=== PATIENT | male | born 1960 | race Caucasian/White ===

== ENCOUNTER 2020-08-10 16:00 | Inpatient (IN) | payer MEDICAID, OTHER ==
[~2020-08-10] VITALS: Ht 185.4 cm; Wt 81.2 kg
[2020-08-10 16:00] VITALS: BP 108/69
[~2020-08-10 16:00] MED LIST: ACET-2247 PO; FERR-89 PO; FOLI-130 PO; GABA-1216 PO; MULT-29 PO; OLAN5TAB52 PO; OMEP20 PO
[2020-08-10] MEDS ORDERED: ACETAMINOPHEN 325 MG TABLET PO PRN (17:45)
[2020-08-11 06:58] LABS: BASOPHILS % (AUTO) 0.8 % (0.0-2.0); EOSINOPHILS % (AUTO) 2.9 % (1.0-6.0); HEMATOCRIT 42.1 % (41-53); HEMOGLOBIN 14.5 g/dL (13.5-17.5); LYMPHOCYTES # (AUTO) 1.9 K/uL (1.0-4.8); LYMPHOCYTES % (AUTO) 21.7 % (22.0-44.0); MEAN CORPUSCULAR HEMOGLOBIN 35.6 pg (26.0-34.0); MEAN CORPUSCULAR HGB CONC 34.4 G/dL (31.0-37.0); MEAN CORPUSCULAR VOLUME 104 fL (80-100); MONOCYTES # (AUTO) 0.9 K/uL (0.1-1.0); MONOCYTES % (AUTO) 10.2 % (2.0-9.0); NEUTROPHILS # (AUTO) 5.7 K/uL (1.8-7.7); NEUTROPHILS % (AUTO) 64.4 % (40.0-70.0); PLATELET COUNT (AUTO) 283 K/uL (150-450); RED BLOOD CELL COUNT(AUTO) 4.07 MIL/uL (4.50-5.90); RED CELL DISTRIBUTION WIDTH 13.9 % (11.5-14.5)
[2020-08-11 07:14] LABS: ALANINE AMINOTRANSFERASE 47 U/L (12-78); ALBUMIN 3.5 g/dL (3.4-5.0); ALKALINE PHOSPHATASE 120 U/L (46-116); ANION GAP 40 mmol/L (8-16); ASPARTATE AMINOTRANSFERASE 23 U/L (15-37); BILIRUBIN,TOTAL 0.8 mg/dL (0.1-1.0); CALCIUM, TOTAL 8.5 mg/dL (8.8-10.5); CARBON DIOXIDE 18 mmol/L (22-29); CHLORIDE 96 mmol/L (98-107); CREATININE 0.93 mg/dL (0.60-1.30); GLOMERULAR FILTR. RATE CALC > 60 mL/min (>60); GLUCOSE,RANDOM 97 mg/dL (70-110); POTASSIUM 3.9 mmol/L (3.5-5.1); SODIUM SERUM 154 mmol/L (136-145); TOTAL PROTEIN, SERUM 6.8 g/dL (6.4-8.2); UREA NITROGEN, BLOOD 26 mg/dL (7-18)
[2020-08-11] MEDS ORDERED: FERROUS SULFATE 325 MG EC TABLET PO SCH (07:30)
[2020-08-11 08:00] VITALS: BP 141/96
[2020-08-11] MEDS ORDERED: PETROLATUM,WHITE 28 GM JELLY TP PRN (08:00)
[2020-08-11] MEDS ORDERED: CloNIDine HCL 0.1 MG TABLET PO PRN (08:00)
[2020-08-11] MEDS ORDERED: IBUPROFEN 400 MG TABLET PO PRN (08:00)
[2020-08-11] MEDS ORDERED: MAG HYDROX/AL HYDROX/SIMETH ES 30 ML SUSPENSION UDCUP PO PRN (08:00)
[2020-08-11] MEDS ORDERED: ONDANSETRON HCL 4 MG TABLET PO PRN (08:00)
[2020-08-11] MEDS ORDERED: LOPERAMIDE HCL 2 MG CAPSULE PO PRN (08:00)
[2020-08-11] MEDS ORDERED: DOCUSATE SODIUM 100 MG CAPSULE PO PRN (08:00)
[2020-08-11] MEDS: FOLIC ACID 1 MG TABLET PO SCH ×2 (08:04→16:13)
[2020-08-11] MEDS: OLANZapine 5 MG TABLET PO SCH ×2 (08:04→16:13)
[2020-08-11] MEDS: GABAPENTIN 100 MG CAPSULE PO SCH ×2 (08:04→16:13)
[2020-08-11] MEDS: OMEPRAZOLE 20 MG CAPSULE PO SCH (08:05)
[2020-08-11] MEDS ORDERED: FOLIC ACID 1 MG TABLET PO SCH (09:00)
[2020-08-11] MEDS ORDERED: PANTOPRAZOLE SODIUM 40 MG DR TABLET PO SCH (09:00)
[2020-08-11] MEDS ORDERED: MULTIVITAMINS WITH MINERALS, THERAPEUTIC TABLET PO SCH (09:00)
[2020-08-11] MEDS: FERROUS SULFATE 325 MG EC TABLET PO SCH (16:14)
[2020-08-11 16:20] VITALS: BP 132/72
[2020-08-12] MEDS: FERROUS SULFATE 325 MG EC TABLET PO SCH ×2 (06:51→16:49)
[2020-08-12 08:00] VITALS: BP 146/86
[2020-08-12 08:04] LABS: APPEARANCE,URINE CLEAR (CLEAR); BILIRUBIN,URINE NEGATIVE (NEGATIVE); GLUCOSE, URINE (UA) NEGATIVE (NEGATIVE); KETONES,URINE NEGATIVE (NEGATIVE); LEUKOCYTE ESTERASE ,URINE NEGATIVE (NEGATIVE); NITRATE,URINE NEGATIVE (NEGATIVE); OCCULT BLOOD,URINE NEGATIVE (NEGATIVE); PH,URINE 5.5 (5.0-8.0); PROTEIN,URINE NEGATIVE (NEGATIVE); UROBILINOGEN,URINE 0.2 mg/dL (<=1.0)
[2020-08-12] MEDS: GABAPENTIN 100 MG CAPSULE PO SCH ×2 (08:07→16:48)
[2020-08-12] MEDS: OLANZapine 5 MG TABLET PO SCH ×2 (08:07→17:16)
[2020-08-12] MEDS: OMEPRAZOLE 20 MG CAPSULE PO SCH (08:07)
[2020-08-12] MEDS: MULTIVITAMINS WITH MINERALS, THERAPEUTIC TABLET PO SCH (08:07)
[2020-08-12] MEDS: FOLIC ACID 1 MG TABLET PO SCH ×2 (08:07→16:48)
[2020-08-12 09:14] LABS: BACTERIA,URINE None Seen /HPF (None Seen); RBC,URINE None Seen /HPF (0-2); WBC,URINE None Seen /HPF (0-5)
[2020-08-13] MEDS: FERROUS SULFATE 325 MG EC TABLET PO SCH ×2 (06:57→17:41)
[2020-08-13 08:00] VITALS: BP 107/79
[2020-08-13] MEDS: GABAPENTIN 100 MG CAPSULE PO SCH ×2 (08:04→17:40)
[2020-08-13] MEDS: OLANZapine 5 MG TABLET PO SCH ×2 (08:04→17:40)
[2020-08-13] MEDS: MULTIVITAMINS WITH MINERALS, THERAPEUTIC TABLET PO SCH (08:04)
[2020-08-13] MEDS: OMEPRAZOLE 20 MG CAPSULE PO SCH (08:05)
[2020-08-13] MEDS: FOLIC ACID 1 MG TABLET PO SCH ×2 (08:05→17:40)
[2020-08-13 16:00] VITALS: BP 128/79
[2020-08-14] MEDS: FERROUS SULFATE 325 MG EC TABLET PO SCH ×2 (06:37→16:31)
[2020-08-14] MEDS: GABAPENTIN 100 MG CAPSULE PO SCH ×2 (08:04→16:31)
[2020-08-14] MEDS: OLANZapine 5 MG TABLET PO SCH ×2 (08:04→16:31)
[2020-08-14] MEDS: OMEPRAZOLE 20 MG CAPSULE PO SCH (08:04)
[2020-08-14] MEDS: MULTIVITAMINS WITH MINERALS, THERAPEUTIC TABLET PO SCH (08:04)
[2020-08-14] MEDS: FOLIC ACID 1 MG TABLET PO SCH ×2 (08:04→16:31)
[2020-08-14 16:21] LABS: COVID AG,FIA SOURCE NASOPHARYNGEAL
[2020-08-14] MEDS: HALOPERIDOL 5 MG TABLET PO PRN (17:31)
[2020-08-14 19:00] VITALS: BP 162/73
[2020-08-15] MEDS: FERROUS SULFATE 325 MG EC TABLET PO SCH ×2 (07:11→16:52)
[2020-08-15] MEDS: MULTIVITAMINS WITH MINERALS, THERAPEUTIC TABLET PO SCH (08:12)
[2020-08-15] MEDS: LORazepam 2 MG TABLET PO PRN (08:12)
[2020-08-15] MEDS: HALOPERIDOL 5 MG TABLET PO PRN (08:12)
[2020-08-15] MEDS: FOLIC ACID 1 MG TABLET PO SCH ×2 (08:12→16:51)
[2020-08-15] MEDS: OMEPRAZOLE 20 MG CAPSULE PO SCH (08:12)
[2020-08-15] MEDS: OLANZapine 5 MG TABLET PO SCH ×2 (08:12→16:51)
[2020-08-15] MEDS: GABAPENTIN 100 MG CAPSULE PO SCH ×2 (08:13→16:51)
[2020-08-15 09:13] VITALS: BP 135/68
[2020-08-15 14:32] LABS: ANION GAP 8 mmol/L (8-16); CALCIUM, TOTAL 9.2 mg/dL (8.8-10.5); CARBON DIOXIDE 29 mmol/L (22-29); CHLORIDE 103 mmol/L (98-107); CREATININE 1.01 mg/dL (0.60-1.30); GLOMERULAR FILTR. RATE CALC > 60 mL/min (>60); GLUCOSE,RANDOM 88 mg/dL (70-110); POTASSIUM 4.5 mmol/L (3.5-5.1); SODIUM SERUM 140 mmol/L (136-145); UREA NITROGEN, BLOOD 27 mg/dL (7-18)
[2020-08-15] MEDS: NICOTINE 14 MG/24 HOUR PATCH TD PRN (14:55)
[2020-08-15 16:47] VITALS: BP 121/92
[2020-08-16] MEDS: ZOLPIDEM TARTRATE 10 MG TABLET PO PRN (00:47)
[2020-08-16 00:53] VITALS: BP 127/85
[2020-08-16] MEDS: FERROUS SULFATE 325 MG EC TABLET PO SCH ×2 (06:54→16:29)
[2020-08-16] MEDS: LORazepam 2 MG TABLET PO PRN (07:48)
[2020-08-16] MEDS: HALOPERIDOL 5 MG TABLET PO PRN (07:48)
[2020-08-16 08:00] VITALS: BP 160/87
[2020-08-16] MEDS: FOLIC ACID 1 MG TABLET PO SCH ×2 (08:02→16:29)
[2020-08-16] MEDS: OMEPRAZOLE 20 MG CAPSULE PO SCH (08:02)
[2020-08-16] MEDS: OLANZapine 5 MG TABLET PO SCH ×2 (08:02→16:29)
[2020-08-16] MEDS: MULTIVITAMINS WITH MINERALS, THERAPEUTIC TABLET PO SCH (08:02)
[2020-08-16] MEDS: GABAPENTIN 100 MG CAPSULE PO SCH ×2 (08:03→16:29)
[2020-08-16 16:01] VITALS: BP 130/81
[2020-08-17 03:30] VITALS: BP 108/59
[2020-08-17 05:00] VITALS: BP 147/71
[2020-08-17] MEDS: FERROUS SULFATE 325 MG EC TABLET PO SCH ×2 (07:01→16:33)
[2020-08-17] MEDS: FOLIC ACID 1 MG TABLET PO SCH ×2 (09:00→16:32)
[2020-08-17] MEDS: OLANZapine 5 MG TABLET PO SCH ×2 (09:00→16:33)
[2020-08-17] MEDS: GABAPENTIN 100 MG CAPSULE PO SCH ×2 (09:00→16:32)
[2020-08-17] MEDS: MULTIVITAMINS WITH MINERALS, THERAPEUTIC TABLET PO SCH (09:00)
[2020-08-17] MEDS: OMEPRAZOLE 20 MG CAPSULE PO SCH (09:00)
[2020-08-17] MEDS: LORazepam 2 MG TABLET PO PRN (11:55)
[2020-08-17] MEDS: HALOPERIDOL 5 MG TABLET PO PRN (11:55)
[2020-08-18] MEDS: ZOLPIDEM TARTRATE 10 MG TABLET PO PRN (01:17)
[2020-08-18 02:21] VITALS: BP 112/58
[2020-08-18] MEDS: FERROUS SULFATE 325 MG EC TABLET PO SCH ×2 (06:39→16:51)
[2020-08-18] MEDS: GABAPENTIN 100 MG CAPSULE PO SCH ×2 (08:21→16:51)
[2020-08-18] MEDS: OLANZapine 5 MG TABLET PO SCH ×2 (08:21→16:51)
[2020-08-18] MEDS: MULTIVITAMINS WITH MINERALS, THERAPEUTIC TABLET PO SCH (08:21)
[2020-08-18] MEDS: OMEPRAZOLE 20 MG CAPSULE PO SCH (08:21)
[2020-08-18] MEDS: FOLIC ACID 1 MG TABLET PO SCH ×2 (08:21→16:51)
[2020-08-18] MEDS: NICOTINE 14 MG/24 HOUR PATCH TD PRN (08:22)
[2020-08-18] MEDS: HALOPERIDOL 5 MG TABLET PO PRN ×2 (08:22→22:02)
[2020-08-18 16:02] VITALS: BP 130/80
[2020-08-18] MEDS: RisperiDONE 2 MG TABLET PO SCH (20:31)
[2020-08-19] MEDS: FERROUS SULFATE 325 MG EC TABLET PO SCH ×2 (06:59→17:31)
[2020-08-19] MEDS: FOLIC ACID 1 MG TABLET PO SCH ×2 (09:28→17:31)
[2020-08-19] MEDS: RisperiDONE 2 MG TABLET PO SCH ×2 (09:28→21:10)
[2020-08-19] MEDS: OMEPRAZOLE 20 MG CAPSULE PO SCH (09:28)
[2020-08-19] MEDS: MULTIVITAMINS WITH MINERALS, THERAPEUTIC TABLET PO SCH (09:28)
[2020-08-19] MEDS: OLANZapine 5 MG TABLET PO SCH ×2 (09:28→17:31)
[2020-08-19] MEDS: GABAPENTIN 100 MG CAPSULE PO SCH ×2 (09:28→17:31)
[2020-08-19 16:00] VITALS: BP 149/56
[2020-08-20] MEDS: FERROUS SULFATE 325 MG EC TABLET PO SCH ×2 (06:43→16:27)
[2020-08-20] MEDS: RisperiDONE 2 MG TABLET PO SCH ×2 (10:22→21:12)
[2020-08-20] MEDS: MULTIVITAMINS WITH MINERALS, THERAPEUTIC TABLET PO SCH (10:22)
[2020-08-20] MEDS: OMEPRAZOLE 20 MG CAPSULE PO SCH (10:22)
[2020-08-20] MEDS: GABAPENTIN 100 MG CAPSULE PO SCH ×2 (10:22→16:27)
[2020-08-20] MEDS: OLANZapine 5 MG TABLET PO SCH ×2 (10:22→16:27)
[2020-08-20] MEDS: FOLIC ACID 1 MG TABLET PO SCH ×2 (10:22→16:27)
[2020-08-20 14:43] VITALS: BP 132/99
[2020-08-20 16:00] VITALS: BP 143/90
[2020-08-20] MEDS: HALOPERIDOL 5 MG TABLET PO PRN (16:28)
[2020-08-21] MEDS: FERROUS SULFATE 325 MG EC TABLET PO SCH ×2 (06:41→17:13)
[2020-08-21] MEDS: MULTIVITAMINS WITH MINERALS, THERAPEUTIC TABLET PO SCH (09:52)
[2020-08-21] MEDS: OLANZapine 5 MG TABLET PO SCH ×2 (09:52→17:13)
[2020-08-21] MEDS: OMEPRAZOLE 20 MG CAPSULE PO SCH (09:52)
[2020-08-21] MEDS: FOLIC ACID 1 MG TABLET PO SCH ×2 (09:53→17:13)
[2020-08-21] MEDS: GABAPENTIN 100 MG CAPSULE PO SCH ×2 (09:53→17:13)
[2020-08-21] MEDS: RisperiDONE 2 MG TABLET PO SCH ×2 (09:53→20:49)
[2020-08-21 14:57] LABS: COVID AG,FIA SOURCE NASOPHARYNGEAL
[2020-08-21] MEDS: HALOPERIDOL 5 MG TABLET PO PRN (15:57)
[2020-08-21 16:07] VITALS: BP 110/81
[2020-08-22 05:55] VITALS: BP 139/65
[2020-08-22] MEDS: FERROUS SULFATE 325 MG EC TABLET PO SCH ×2 (06:57→16:32)
[2020-08-22 08:45] VITALS: BP 152/106
[2020-08-22] MEDS: FOLIC ACID 1 MG TABLET PO SCH ×2 (09:08→16:32)
[2020-08-22] MEDS: MULTIVITAMINS WITH MINERALS, THERAPEUTIC TABLET PO SCH (09:08)
[2020-08-22] MEDS: RisperiDONE 2 MG TABLET PO SCH ×2 (09:08→20:46)
[2020-08-22] MEDS: OMEPRAZOLE 20 MG CAPSULE PO SCH (09:08)
[2020-08-22] MEDS: OLANZapine 5 MG TABLET PO SCH ×2 (09:08→16:32)
[2020-08-22] MEDS: GABAPENTIN 100 MG CAPSULE PO SCH ×2 (09:08→16:32)
[2020-08-22 16:16] VITALS: BP 138/88
[2020-08-22] MEDS: HALOPERIDOL 5 MG TABLET PO PRN (16:34)
[2020-08-23 00:17] VITALS: BP 136/63
[2020-08-23] MEDS: ZOLPIDEM TARTRATE 10 MG TABLET PO PRN (01:09)
[2020-08-23] MEDS: FERROUS SULFATE 325 MG EC TABLET PO SCH ×2 (06:42→16:13)
[2020-08-23] MEDS: OLANZapine 5 MG TABLET PO SCH ×2 (08:46→16:13)
[2020-08-23] MEDS: RisperiDONE 2 MG TABLET PO SCH (08:46)
[2020-08-23] MEDS: MULTIVITAMINS WITH MINERALS, THERAPEUTIC TABLET PO SCH (08:46)
[2020-08-23] MEDS: OMEPRAZOLE 20 MG CAPSULE PO SCH (08:47)
[2020-08-23] MEDS: GABAPENTIN 100 MG CAPSULE PO SCH ×2 (08:47→16:13)
[2020-08-23] MEDS: FOLIC ACID 1 MG TABLET PO SCH ×2 (08:47→16:13)
[2020-08-23 16:02] VITALS: BP 130/70
[2020-08-23] MEDS: LORazepam 2 MG TABLET PO PRN (16:18)
[2020-08-23 17:20] VITALS: BP 138/77
[2020-08-23] MEDS: RisperiDONE 3 MG TABLET PO SCH (21:00)
[2020-08-23] MEDS: HALOPERIDOL 5 MG TABLET PO PRN (22:50)
[2020-08-24] MEDS: FERROUS SULFATE 325 MG EC TABLET PO SCH ×2 (06:48→17:42)
[2020-08-24] MEDS: OMEPRAZOLE 20 MG CAPSULE PO SCH (09:47)
[2020-08-24] MEDS: FOLIC ACID 1 MG TABLET PO SCH ×2 (09:47→16:17)
[2020-08-24] MEDS: GABAPENTIN 100 MG CAPSULE PO SCH ×2 (09:47→16:17)
[2020-08-24] MEDS: OLANZapine 5 MG TABLET PO SCH ×2 (09:47→16:17)
[2020-08-24] MEDS: MULTIVITAMINS WITH MINERALS, THERAPEUTIC TABLET PO SCH (09:47)
[2020-08-24] MEDS: RisperiDONE 3 MG TABLET PO SCH ×2 (09:48→20:25)
[2020-08-24 16:00] VITALS: BP 139/76
[2020-08-24] MEDS: HALOPERIDOL 5 MG TABLET PO PRN ×2 (16:17→20:25)
[2020-08-25] MEDS: FERROUS SULFATE 325 MG EC TABLET PO SCH ×2 (06:49→17:30)
[2020-08-25] MEDS: GABAPENTIN 100 MG CAPSULE PO SCH ×2 (10:44→16:26)
[2020-08-25] MEDS: OLANZapine 5 MG TABLET PO SCH ×2 (10:44→16:26)
[2020-08-25] MEDS: OMEPRAZOLE 20 MG CAPSULE PO SCH (10:44)
[2020-08-25] MEDS: RisperiDONE 3 MG TABLET PO SCH ×2 (10:44→20:16)
[2020-08-25] MEDS: FOLIC ACID 1 MG TABLET PO SCH ×2 (10:44→16:26)
[2020-08-25] MEDS: MULTIVITAMINS WITH MINERALS, THERAPEUTIC TABLET PO SCH (10:44)
[2020-08-25] MEDS: HALOPERIDOL 5 MG TABLET PO PRN ×3 (11:51→20:27)
[2020-08-25] MEDS: LORazepam 2 MG TABLET PO PRN (11:51)
[2020-08-25 16:08] VITALS: BP 133/74
[2020-08-26 02:47] VITALS: BP 124/77
[2020-08-26] MEDS: FERROUS SULFATE 325 MG EC TABLET PO SCH ×2 (07:13→17:24)
[2020-08-26] MEDS: OLANZapine 5 MG TABLET PO SCH ×2 (08:57→16:37)
[2020-08-26] MEDS: FOLIC ACID 1 MG TABLET PO SCH ×2 (08:57→16:36)
[2020-08-26] MEDS: MULTIVITAMINS WITH MINERALS, THERAPEUTIC TABLET PO SCH (08:57)
[2020-08-26] MEDS: GABAPENTIN 100 MG CAPSULE PO SCH ×2 (08:57→16:36)
[2020-08-26] MEDS: RisperiDONE 3 MG TABLET PO SCH ×2 (08:57→20:48)
[2020-08-26] MEDS: OMEPRAZOLE 20 MG CAPSULE PO SCH (08:57)
[2020-08-26 09:18] VITALS: BP 137/87
[2020-08-26] MEDS: DIVALPROEX SODIUM 500 MG DR TABLET PO SCH ×2 (09:45→16:36)
[2020-08-26 16:00] VITALS: BP 134/94
[2020-08-26] MEDS: HALOPERIDOL 5 MG TABLET PO PRN ×2 (16:36→20:48)
[2020-08-27] MEDS: FERROUS SULFATE 325 MG EC TABLET PO SCH ×2 (06:49→17:20)
[2020-08-27] MEDS: OLANZapine 5 MG TABLET PO SCH ×2 (10:06→17:20)
[2020-08-27] MEDS: OMEPRAZOLE 20 MG CAPSULE PO SCH (10:06)
[2020-08-27] MEDS: DIVALPROEX SODIUM 500 MG DR TABLET PO SCH ×2 (10:06→17:20)
[2020-08-27] MEDS: FOLIC ACID 1 MG TABLET PO SCH ×2 (10:06→17:20)
[2020-08-27] MEDS: MULTIVITAMINS WITH MINERALS, THERAPEUTIC TABLET PO SCH (10:06)
[2020-08-27] MEDS: RisperiDONE 3 MG TABLET PO SCH ×2 (10:06→21:58)
[2020-08-27] MEDS: GABAPENTIN 100 MG CAPSULE PO SCH ×2 (10:06→17:20)
[2020-08-27 16:09] VITALS: BP 135/81
[2020-08-27] MEDS: LORazepam 2 MG TABLET PO PRN (17:24)
[2020-08-28] MEDS: FERROUS SULFATE 325 MG EC TABLET PO SCH ×2 (07:03→16:02)
[2020-08-28] MEDS: GABAPENTIN 100 MG CAPSULE PO SCH ×2 (08:23→16:02)
[2020-08-28] MEDS: DIVALPROEX SODIUM 500 MG DR TABLET PO SCH ×2 (08:23→16:02)
[2020-08-28] MEDS: RisperiDONE 3 MG TABLET PO SCH ×2 (08:23→20:00)
[2020-08-28] MEDS: FOLIC ACID 1 MG TABLET PO SCH ×2 (08:23→16:02)
[2020-08-28] MEDS: OLANZapine 5 MG TABLET PO SCH ×2 (08:23→16:02)
[2020-08-28] MEDS: MULTIVITAMINS WITH MINERALS, THERAPEUTIC TABLET PO SCH (08:23)
[2020-08-28] MEDS: OMEPRAZOLE 20 MG CAPSULE PO SCH (08:23)
[2020-08-28] MEDS: LORazepam 2 MG TABLET PO PRN ×2 (08:24→20:00)
[2020-08-28 08:56] VITALS: BP 113/56
[2020-08-28 12:21] VITALS: BP 136/54
[2020-08-28 16:00] VITALS: BP 123/76
[2020-08-28] MEDS: HALOPERIDOL 5 MG TABLET PO PRN (16:02)
[2020-08-28 16:47] LABS: EOSINOPHILS % (AUTO) 2.9 % (1.0-6.0); HEMATOCRIT 42.4 % (41-53); HEMOGLOBIN 14.2 g/dL (13.5-17.5); LYMPHOCYTES # (AUTO) 2.8 K/uL (1.0-4.8); LYMPHOCYTES % (AUTO) 34.1 % (22.0-44.0); MEAN CORPUSCULAR HEMOGLOBIN 35.2 pg (26.0-34.0); MEAN CORPUSCULAR HGB CONC 33.5 G/dL (31.0-37.0); MEAN CORPUSCULAR VOLUME 105 fL (80-100); MONOCYTES # (AUTO) 0.8 K/uL (0.1-1.0); MONOCYTES % (AUTO) 10.2 % (2.0-9.0); NEUTROPHILS # (AUTO) 4.2 K/uL (1.8-7.7); NEUTROPHILS % (AUTO) 51.8 % (40.0-70.0); PLATELET COUNT (AUTO) 345 K/uL (150-450); RED BLOOD CELL COUNT(AUTO) 4.03 MIL/uL (4.50-5.90); RED CELL DISTRIBUTION WIDTH 13.5 % (11.5-14.5)
[2020-08-28 17:07] LABS: ALANINE AMINOTRANSFERASE 24 U/L (12-78); ALKALINE PHOSPHATASE 130 U/L (46-116); ANION GAP 10 mmol/L (8-16); ASPARTATE AMINOTRANSFERASE 13 U/L (15-37); BILIRUBIN,TOTAL 0.4 mg/dL (0.1-1.0); CALCIUM, TOTAL 9.4 mg/dL (8.8-10.5); CARBON DIOXIDE 27 mmol/L (22-29); CHLORIDE 105 mmol/L (98-107); CREATININE 1.14 mg/dL (0.60-1.30); GLOMERULAR FILTR. RATE CALC > 60 mL/min (>60); GLUCOSE,RANDOM 108 mg/dL (70-110); POTASSIUM 4.2 mmol/L (3.5-5.1); SODIUM SERUM 142 mmol/L (136-145); TOTAL PROTEIN, SERUM 7.1 g/dL (6.4-8.2); UREA NITROGEN, BLOOD 27 mg/dL (7-18)
[2020-08-29] MEDS: FERROUS SULFATE 325 MG EC TABLET PO SCH ×2 (06:42→16:14)
[2020-08-29 07:29] LABS: APPEARANCE,URINE CLEAR (CLEAR); BILIRUBIN,URINE NEGATIVE (NEGATIVE); GLUCOSE, URINE (UA) NEGATIVE (NEGATIVE); KETONES,URINE NEGATIVE (NEGATIVE); LEUKOCYTE ESTERASE ,URINE NEGATIVE (NEGATIVE); NITRATE,URINE NEGATIVE (NEGATIVE); OCCULT BLOOD,URINE NEGATIVE (NEGATIVE); PROTEIN,URINE NEGATIVE (NEGATIVE); UROBILINOGEN,URINE 0.2 mg/dL (<=1.0)
[2020-08-29] MEDS: OMEPRAZOLE 20 MG CAPSULE PO SCH (09:15)
[2020-08-29] MEDS: GABAPENTIN 100 MG CAPSULE PO SCH ×2 (09:15→16:14)
[2020-08-29] MEDS: FOLIC ACID 1 MG TABLET PO SCH ×2 (09:15→16:14)
[2020-08-29] MEDS: DIVALPROEX SODIUM 500 MG DR TABLET PO SCH ×2 (09:15→16:14)
[2020-08-29] MEDS: RisperiDONE 3 MG TABLET PO SCH ×2 (09:16→20:57)
[2020-08-29] MEDS: OLANZapine 5 MG TABLET PO SCH ×2 (09:16→16:14)
[2020-08-29] MEDS: MULTIVITAMINS WITH MINERALS, THERAPEUTIC TABLET PO SCH (09:16)
[2020-08-29 13:48] LABS: COVID AG,FIA SOURCE NASOPHARYNGEAL
[2020-08-29 16:08] VITALS: BP 145/78
[2020-08-29] MEDS: HALOPERIDOL 5 MG TABLET PO PRN (16:14)
[2020-08-30] MEDS: FERROUS SULFATE 325 MG EC TABLET PO SCH ×2 (06:55→16:30)
[2020-08-30] MEDS: LORazepam 2 MG TABLET PO PRN (08:28)
[2020-08-30] MEDS: HALOPERIDOL 5 MG TABLET PO PRN (08:28)
[2020-08-30] MEDS: NICOTINE 14 MG/24 HOUR PATCH TD PRN (08:28)
[2020-08-30] MEDS: GABAPENTIN 100 MG CAPSULE PO SCH ×2 (08:30→16:30)
[2020-08-30] MEDS: DIVALPROEX SODIUM 500 MG DR TABLET PO SCH ×2 (08:30→16:30)
[2020-08-30] MEDS: OLANZapine 5 MG TABLET PO SCH ×2 (08:30→16:30)
[2020-08-30] MEDS: OMEPRAZOLE 20 MG CAPSULE PO SCH (08:30)
[2020-08-30] MEDS: RisperiDONE 3 MG TABLET PO SCH ×2 (08:30→20:35)
[2020-08-30] MEDS: MULTIVITAMINS WITH MINERALS, THERAPEUTIC TABLET PO SCH (08:30)
[2020-08-30] MEDS: FOLIC ACID 1 MG TABLET PO SCH ×2 (08:30→16:30)
[2020-08-30 16:38] VITALS: BP 101/51
[2020-08-31] MEDS: FERROUS SULFATE 325 MG EC TABLET PO SCH ×2 (06:51→18:00)
[2020-08-31 09:45] VITALS: BP 100/62
[2020-08-31] MEDS: DIVALPROEX SODIUM 500 MG DR TABLET PO SCH ×2 (09:55→16:12)
[2020-08-31] MEDS: MULTIVITAMINS WITH MINERALS, THERAPEUTIC TABLET PO SCH (09:55)
[2020-08-31] MEDS: FOLIC ACID 1 MG TABLET PO SCH ×2 (09:55→16:12)
[2020-08-31] MEDS: RisperiDONE 3 MG TABLET PO SCH ×2 (09:55→21:32)
[2020-08-31] MEDS: OMEPRAZOLE 20 MG CAPSULE PO SCH (09:55)
[2020-08-31] MEDS: OLANZapine 5 MG TABLET PO SCH ×2 (09:55→16:11)
[2020-08-31] MEDS: GABAPENTIN 100 MG CAPSULE PO SCH ×2 (09:55→16:12)
[2020-08-31] MEDS: HALOPERIDOL 5 MG TABLET PO PRN (16:12)
[2020-09-01] MEDS: FERROUS SULFATE 325 MG EC TABLET PO SCH ×2 (07:03→16:35)
[2020-09-01] MEDS: LORazepam 2 MG TABLET PO PRN (08:09)
[2020-09-01] MEDS: NICOTINE 14 MG/24 HOUR PATCH TD PRN (08:09)
[2020-09-01] MEDS: DIVALPROEX SODIUM 500 MG DR TABLET PO SCH ×2 (08:09→16:35)
[2020-09-01] MEDS: OMEPRAZOLE 20 MG CAPSULE PO SCH (08:09)
[2020-09-01] MEDS: OLANZapine 5 MG TABLET PO SCH ×2 (08:09→16:35)
[2020-09-01] MEDS: GABAPENTIN 100 MG CAPSULE PO SCH ×2 (08:09→16:35)
[2020-09-01] MEDS: FOLIC ACID 1 MG TABLET PO SCH ×2 (08:09→16:35)
[2020-09-01] MEDS: RisperiDONE 3 MG TABLET PO SCH ×2 (08:09→20:12)
[2020-09-01] MEDS: MULTIVITAMINS WITH MINERALS, THERAPEUTIC TABLET PO SCH (08:09)
[2020-09-01] MEDS: HALOPERIDOL 5 MG TABLET PO PRN (08:09)
[2020-09-01 16:00] VITALS: BP 136/61
[2020-09-02 02:22] VITALS: BP 150/90
[2020-09-02] MEDS: FERROUS SULFATE 325 MG EC TABLET PO SCH ×2 (07:30→16:52)
[2020-09-02] MEDS: MULTIVITAMINS WITH MINERALS, THERAPEUTIC TABLET PO SCH (09:00)
[2020-09-02] MEDS: DIVALPROEX SODIUM 500 MG DR TABLET PO SCH ×2 (09:00→16:52)
[2020-09-02] MEDS: OLANZapine 5 MG TABLET PO SCH ×2 (09:00→16:52)
[2020-09-02] MEDS: OMEPRAZOLE 20 MG CAPSULE PO SCH (09:00)
[2020-09-02] MEDS: FOLIC ACID 1 MG TABLET PO SCH ×2 (09:00→16:52)
[2020-09-02] MEDS: RisperiDONE 3 MG TABLET PO SCH ×2 (09:00→21:28)
[2020-09-02] MEDS: GABAPENTIN 100 MG CAPSULE PO SCH ×2 (09:00→16:53)
[2020-09-02] MEDS: LORazepam 2 MG TABLET PO PRN (09:56)
[2020-09-02 10:37] VITALS: BP 115/63
[2020-09-02 12:15] VITALS: BP 118/65
[2020-09-02 16:11] VITALS: BP 124/82
[2020-09-03] MEDS: FERROUS SULFATE 325 MG EC TABLET PO SCH ×2 (06:57→16:28)
[2020-09-03] MEDS: OMEPRAZOLE 20 MG CAPSULE PO SCH (08:38)
[2020-09-03] MEDS: DIVALPROEX SODIUM 500 MG DR TABLET PO SCH ×2 (08:38→16:28)
[2020-09-03] MEDS: GABAPENTIN 100 MG CAPSULE PO SCH ×2 (08:38→16:27)
[2020-09-03] MEDS: MULTIVITAMINS WITH MINERALS, THERAPEUTIC TABLET PO SCH (08:38)
[2020-09-03] MEDS: FOLIC ACID 1 MG TABLET PO SCH ×2 (08:38→16:28)
[2020-09-03] MEDS: OLANZapine 5 MG TABLET PO SCH ×2 (08:38→16:28)
[2020-09-03] MEDS: HALOPERIDOL 5 MG TABLET PO PRN ×2 (08:38→16:28)
[2020-09-03] MEDS: RisperiDONE 3 MG TABLET PO SCH ×2 (08:38→20:36)
[2020-09-03 09:45] VITALS: BP 153/88
[2020-09-03 16:01] VITALS: BP 126/77
[2020-09-03] MEDS: ZOLPIDEM TARTRATE 10 MG TABLET PO PRN (23:44)
[2020-09-04] MEDS: FERROUS SULFATE 325 MG EC TABLET PO SCH ×2 (06:43→16:44)
[2020-09-04] MEDS: DIVALPROEX SODIUM 500 MG DR TABLET PO SCH ×2 (09:23→16:44)
[2020-09-04] MEDS: OLANZapine 5 MG TABLET PO SCH ×2 (09:23→16:44)
[2020-09-04] MEDS: RisperiDONE 3 MG TABLET PO SCH ×2 (09:23→22:04)
[2020-09-04] MEDS: MULTIVITAMINS WITH MINERALS, THERAPEUTIC TABLET PO SCH (09:23)
[2020-09-04] MEDS: FOLIC ACID 1 MG TABLET PO SCH ×2 (09:23→16:44)
[2020-09-04] MEDS: OMEPRAZOLE 20 MG CAPSULE PO SCH (09:23)
[2020-09-04] MEDS: GABAPENTIN 100 MG CAPSULE PO SCH ×2 (09:33→16:44)
[2020-09-04] MEDS: LORazepam 2 MG TABLET PO PRN (16:44)
[2020-09-05] MEDS: FERROUS SULFATE 325 MG EC TABLET PO SCH ×2 (07:09→16:09)
[2020-09-05] MEDS: OLANZapine 5 MG TABLET PO SCH ×2 (08:15→16:09)
[2020-09-05] MEDS: GABAPENTIN 100 MG CAPSULE PO SCH ×2 (08:15→16:09)
[2020-09-05] MEDS: RisperiDONE 3 MG TABLET PO SCH ×2 (08:15→20:18)
[2020-09-05] MEDS: MULTIVITAMINS WITH MINERALS, THERAPEUTIC TABLET PO SCH (08:15)
[2020-09-05] MEDS: OMEPRAZOLE 20 MG CAPSULE PO SCH (08:15)
[2020-09-05] MEDS: FOLIC ACID 1 MG TABLET PO SCH ×2 (08:15→16:09)
[2020-09-05] MEDS: DIVALPROEX SODIUM 500 MG DR TABLET PO SCH ×2 (08:15→16:09)
[2020-09-05 16:31] VITALS: BP 110/71
[2020-09-06] MEDS: FERROUS SULFATE 325 MG EC TABLET PO SCH ×2 (06:46→16:47)
[2020-09-06 08:00] VITALS: BP 152/83
[2020-09-06] MEDS: FOLIC ACID 1 MG TABLET PO SCH ×2 (08:33→16:47)
[2020-09-06] MEDS: OMEPRAZOLE 20 MG CAPSULE PO SCH (08:34)
[2020-09-06] MEDS: RisperiDONE 3 MG TABLET PO SCH ×2 (08:34→21:35)
[2020-09-06] MEDS: OLANZapine 5 MG TABLET PO SCH ×2 (08:34→16:47)
[2020-09-06] MEDS: MULTIVITAMINS WITH MINERALS, THERAPEUTIC TABLET PO SCH (08:34)
[2020-09-06] MEDS: GABAPENTIN 100 MG CAPSULE PO SCH ×2 (08:34→16:47)
[2020-09-06] MEDS: DIVALPROEX SODIUM 500 MG DR TABLET PO SCH ×2 (08:35→16:47)
[2020-09-06 16:31] VITALS: BP 135/78
[2020-09-06] MEDS: HALOPERIDOL 5 MG TABLET PO PRN (16:51)
[2020-09-07] MEDS: FERROUS SULFATE 325 MG EC TABLET PO SCH ×2 (06:55→17:00)
[2020-09-07] MEDS: OLANZapine 5 MG TABLET PO SCH ×2 (08:53→17:00)
[2020-09-07] MEDS: MULTIVITAMINS WITH MINERALS, THERAPEUTIC TABLET PO SCH (08:54)
[2020-09-07] MEDS: DIVALPROEX SODIUM 500 MG DR TABLET PO SCH ×2 (08:54→17:00)
[2020-09-07] MEDS: RisperiDONE 3 MG TABLET PO SCH ×2 (08:54→23:01)
[2020-09-07] MEDS: GABAPENTIN 100 MG CAPSULE PO SCH ×2 (08:54→17:00)
[2020-09-07] MEDS: FOLIC ACID 1 MG TABLET PO SCH ×2 (08:54→17:00)
[2020-09-07] MEDS: OMEPRAZOLE 20 MG CAPSULE PO SCH (08:54)
[2020-09-07] MEDS: LORazepam 2 MG TABLET PO PRN (10:15)
[2020-09-07 16:15] VITALS: BP 146/77
[2020-09-07] MEDS: HALOPERIDOL 5 MG TABLET PO PRN (17:00)
[2020-09-08] MEDS: FERROUS SULFATE 325 MG EC TABLET PO SCH ×2 (07:07→16:56)
[2020-09-08 08:03] VITALS: BP 161/96
[2020-09-08] MEDS: RisperiDONE 3 MG TABLET PO SCH ×2 (08:14→22:23)
[2020-09-08] MEDS: OMEPRAZOLE 20 MG CAPSULE PO SCH (08:14)
[2020-09-08] MEDS: OLANZapine 5 MG TABLET PO SCH ×2 (08:14→16:56)
[2020-09-08] MEDS: FOLIC ACID 1 MG TABLET PO SCH ×2 (08:15→16:56)
[2020-09-08] MEDS: HALOPERIDOL 5 MG TABLET PO PRN ×3 (08:15→17:42)
[2020-09-08] MEDS: DIVALPROEX SODIUM 500 MG DR TABLET PO SCH ×2 (08:15→16:56)
[2020-09-08] MEDS: MULTIVITAMINS WITH MINERALS, THERAPEUTIC TABLET PO SCH (08:15)
[2020-09-08] MEDS: GABAPENTIN 100 MG CAPSULE PO SCH ×2 (08:15→16:56)
[2020-09-09] MEDS: FERROUS SULFATE 325 MG EC TABLET PO SCH ×2 (06:55→16:40)
[2020-09-09] MEDS: OLANZapine 5 MG TABLET PO SCH ×3 (08:12→16:40)
[2020-09-09] MEDS: FOLIC ACID 1 MG TABLET PO SCH ×2 (08:12→16:40)
[2020-09-09] MEDS: MULTIVITAMINS WITH MINERALS, THERAPEUTIC TABLET PO SCH (08:12)
[2020-09-09] MEDS: HALOPERIDOL 5 MG TABLET PO PRN (08:12)
[2020-09-09] MEDS: RisperiDONE 3 MG TABLET PO SCH ×3 (08:12→21:00)
[2020-09-09] MEDS: DIVALPROEX SODIUM 500 MG DR TABLET PO SCH ×3 (08:12→16:40)
[2020-09-09] MEDS: OMEPRAZOLE 20 MG CAPSULE PO SCH (08:12)
[2020-09-09] MEDS: GABAPENTIN 100 MG CAPSULE PO SCH ×2 (09:20→16:40)
[2020-09-09 16:31] VITALS: BP 131/71
[2020-09-10] MEDS: FERROUS SULFATE 325 MG EC TABLET PO SCH ×2 (07:02→16:18)
[2020-09-10] MEDS: RisperiDONE 3 MG TABLET PO SCH ×2 (08:44→22:44)
[2020-09-10] MEDS: MULTIVITAMINS WITH MINERALS, THERAPEUTIC TABLET PO SCH (08:44)
[2020-09-10] MEDS: OMEPRAZOLE 20 MG CAPSULE PO SCH (08:44)
[2020-09-10] MEDS: DIVALPROEX SODIUM 500 MG DR TABLET PO SCH ×2 (08:44→16:18)
[2020-09-10] MEDS: FOLIC ACID 1 MG TABLET PO SCH ×2 (08:44→16:18)
[2020-09-10] MEDS: OLANZapine 5 MG TABLET PO SCH ×2 (08:44→16:18)
[2020-09-10] MEDS: GABAPENTIN 100 MG CAPSULE PO SCH ×2 (08:44→16:18)
[2020-09-10] MEDS: LORazepam 2 MG TABLET PO PRN (09:05)
[2020-09-10 16:08] VITALS: BP 128/72
[2020-09-10] MEDS: HALOPERIDOL 5 MG TABLET PO PRN (16:18)
[2020-09-11] MEDS: FERROUS SULFATE 325 MG EC TABLET PO SCH ×2 (06:59→16:10)
[2020-09-11] MEDS: MULTIVITAMINS WITH MINERALS, THERAPEUTIC TABLET PO SCH (10:34)
[2020-09-11] MEDS: LORazepam 2 MG TABLET PO PRN ×2 (10:35→16:10)
[2020-09-11] MEDS: GABAPENTIN 100 MG CAPSULE PO SCH ×2 (10:35→16:09)
[2020-09-11] MEDS: DIVALPROEX SODIUM 500 MG DR TABLET PO SCH ×2 (10:36→16:10)
[2020-09-11] MEDS: RisperiDONE 3 MG TABLET PO SCH ×2 (10:37→20:24)
[2020-09-11] MEDS: OLANZapine 5 MG TABLET PO SCH ×2 (10:37→16:10)
[2020-09-11] MEDS: FOLIC ACID 1 MG TABLET PO SCH ×2 (10:37→16:09)
[2020-09-11] MEDS: OMEPRAZOLE 20 MG CAPSULE PO SCH (10:37)
[2020-09-11 16:13] VITALS: BP 135/81
[2020-09-12] MEDS: FERROUS SULFATE 325 MG EC TABLET PO SCH ×2 (06:41→17:03)
[2020-09-12 08:37] LABS: COVID AG,FIA SOURCE NASOPHARYNGEAL
[2020-09-12] MEDS: DIVALPROEX SODIUM 500 MG DR TABLET PO SCH ×2 (09:09→16:13)
[2020-09-12] MEDS: GABAPENTIN 100 MG CAPSULE PO SCH ×2 (09:09→16:13)
[2020-09-12] MEDS: RisperiDONE 3 MG TABLET PO SCH ×2 (09:09→21:00)
[2020-09-12] MEDS: OMEPRAZOLE 20 MG CAPSULE PO SCH (09:10)
[2020-09-12] MEDS: FOLIC ACID 1 MG TABLET PO SCH ×2 (09:10→16:13)
[2020-09-12] MEDS: OLANZapine 5 MG TABLET PO SCH ×2 (09:10→16:13)
[2020-09-12] MEDS: MULTIVITAMINS WITH MINERALS, THERAPEUTIC TABLET PO SCH (09:10)
[2020-09-12 16:06] VITALS: BP 123/77
[2020-09-12] MEDS: LORazepam 2 MG TABLET PO PRN (16:13)
[2020-09-12] MEDS: ZOLPIDEM TARTRATE 10 MG TABLET PO PRN (23:52)
[2020-09-13] MEDS: FERROUS SULFATE 325 MG EC TABLET PO SCH ×2 (06:34→16:53)
[2020-09-13] MEDS: OLANZapine 5 MG TABLET PO SCH ×2 (08:17→16:53)
[2020-09-13] MEDS: DIVALPROEX SODIUM 500 MG DR TABLET PO SCH ×2 (08:18→16:53)
[2020-09-13] MEDS: GABAPENTIN 100 MG CAPSULE PO SCH ×2 (08:18→16:53)
[2020-09-13] MEDS: OMEPRAZOLE 20 MG CAPSULE PO SCH (08:18)
[2020-09-13] MEDS: NICOTINE 14 MG/24 HOUR PATCH TD PRN (08:18)
[2020-09-13] MEDS: MULTIVITAMINS WITH MINERALS, THERAPEUTIC TABLET PO SCH (08:18)
[2020-09-13] MEDS: FOLIC ACID 1 MG TABLET PO SCH ×2 (08:18→16:53)
[2020-09-13] MEDS: RisperiDONE 3 MG TABLET PO SCH ×2 (08:18→21:02)
[2020-09-13] MEDS: HALOPERIDOL 5 MG TABLET PO PRN (08:18)
[2020-09-13 10:21] VITALS: BP 152/96
[2020-09-13 16:12] VITALS: BP 125/81
[2020-09-14] MEDS: FERROUS SULFATE 325 MG EC TABLET PO SCH ×2 (06:58→16:29)
[2020-09-14] MEDS: GABAPENTIN 100 MG CAPSULE PO SCH ×2 (08:09→16:29)
[2020-09-14] MEDS: FOLIC ACID 1 MG TABLET PO SCH ×2 (08:09→16:29)
[2020-09-14] MEDS: MULTIVITAMINS WITH MINERALS, THERAPEUTIC TABLET PO SCH (08:09)
[2020-09-14] MEDS: OLANZapine 5 MG TABLET PO SCH ×2 (08:09→16:29)
[2020-09-14] MEDS: DIVALPROEX SODIUM 500 MG DR TABLET PO SCH ×2 (08:09→16:29)
[2020-09-14] MEDS: OMEPRAZOLE 20 MG CAPSULE PO SCH (08:09)
[2020-09-14] MEDS: RisperiDONE 3 MG TABLET PO SCH ×2 (08:09→20:48)
[2020-09-14 08:44] VITALS: BP 145/91
[2020-09-14 16:15] VITALS: BP 148/78
[2020-09-14] MEDS: HALOPERIDOL 5 MG TABLET PO PRN (16:29)
[2020-09-14] MEDS: MAGNESIUM HYDROXIDE SUSPENSION 30 ML UDCUP PO PRN (20:48)
[2020-09-15] MEDS: FERROUS SULFATE 325 MG EC TABLET PO SCH ×2 (06:53→16:29)
[2020-09-15] MEDS: NICOTINE 14 MG/24 HOUR PATCH TD PRN (08:25)
[2020-09-15] MEDS: HALOPERIDOL 5 MG TABLET PO PRN ×2 (08:25→16:30)
[2020-09-15] MEDS: RisperiDONE 3 MG TABLET PO SCH ×2 (08:26→21:05)
[2020-09-15] MEDS: OMEPRAZOLE 20 MG CAPSULE PO SCH (08:26)
[2020-09-15] MEDS: FOLIC ACID 1 MG TABLET PO SCH ×2 (08:26→16:29)
[2020-09-15] MEDS: DIVALPROEX SODIUM 500 MG DR TABLET PO SCH ×2 (08:26→16:29)
[2020-09-15] MEDS: MULTIVITAMINS WITH MINERALS, THERAPEUTIC TABLET PO SCH (08:26)
[2020-09-15] MEDS: GABAPENTIN 100 MG CAPSULE PO SCH ×2 (08:26→16:29)
[2020-09-15] MEDS: OLANZapine 5 MG TABLET PO SCH ×2 (08:26→16:29)
[2020-09-15 17:10] VITALS: BP 149/93
[2020-09-15 17:25] VITALS: BP 109/92
[2020-09-15 17:40] VITALS: BP 156/58
[2020-09-15 18:10] VITALS: BP 154/80
[2020-09-15 18:40] VITALS: BP 140/72
[2020-09-15 20:18] VITALS: BP 149/93
[2020-09-16] MEDS: LORazepam 2 MG TABLET PO PRN ×2 (02:37→09:33)
[2020-09-16] MEDS: FERROUS SULFATE 325 MG EC TABLET PO SCH ×2 (07:01→16:07)
[2020-09-16] MEDS: GABAPENTIN 100 MG CAPSULE PO SCH ×2 (09:24→16:07)
[2020-09-16] MEDS: DIVALPROEX SODIUM 500 MG DR TABLET PO SCH ×2 (09:24→16:07)
[2020-09-16] MEDS: RisperiDONE 3 MG TABLET PO SCH ×2 (09:24→20:17)
[2020-09-16] MEDS: OMEPRAZOLE 20 MG CAPSULE PO SCH (09:24)
[2020-09-16] MEDS: MULTIVITAMINS WITH MINERALS, THERAPEUTIC TABLET PO SCH (09:24)
[2020-09-16] MEDS: FOLIC ACID 1 MG TABLET PO SCH ×2 (09:24→16:07)
[2020-09-16] MEDS: OLANZapine 5 MG TABLET PO SCH ×2 (09:25→16:07)
[2020-09-16 10:03] VITALS: BP 147/89
[2020-09-16] MEDS: HALOPERIDOL 5 MG TABLET PO PRN (16:07)
[2020-09-16] MEDS: BACITRACIN 28 GM OINTMENT TP SCH (17:00)
[2020-09-16 17:56] VITALS: BP 126/72
[2020-09-17] MEDS: FERROUS SULFATE 325 MG EC TABLET PO SCH ×2 (06:36→16:15)
[2020-09-17] MEDS: RisperiDONE 3 MG TABLET PO SCH ×2 (08:25→20:27)
[2020-09-17] MEDS: OLANZapine 5 MG TABLET PO SCH ×2 (08:25→16:15)
[2020-09-17] MEDS: GABAPENTIN 100 MG CAPSULE PO SCH ×2 (08:25→16:15)
[2020-09-17] MEDS: FOLIC ACID 1 MG TABLET PO SCH ×2 (08:25→16:15)
[2020-09-17] MEDS: DIVALPROEX SODIUM 500 MG DR TABLET PO SCH ×2 (08:26→16:15)
[2020-09-17] MEDS: OMEPRAZOLE 20 MG CAPSULE PO SCH (08:26)
[2020-09-17] MEDS: MULTIVITAMINS WITH MINERALS, THERAPEUTIC TABLET PO SCH (08:26)
[2020-09-17] MEDS: LORazepam 2 MG TABLET PO PRN (09:48)
[2020-09-17] MEDS: BACITRACIN 28 GM OINTMENT TP SCH ×2 (09:57→17:00)
[2020-09-17] MEDS: HALOPERIDOL 5 MG TABLET PO PRN ×2 (09:58→16:15)
[2020-09-17] MEDS ORDERED: TUBERCULIN, PURIFIED PROTEIN DERIVATIVE 5 TU/0.1 ML SYRINGE ID ONE (16:00)
[2020-09-17 16:01] VITALS: BP 123/81
[2020-09-18] MEDS: FERROUS SULFATE 325 MG EC TABLET PO SCH ×2 (06:52→17:19)
[2020-09-18] MEDS: OMEPRAZOLE 20 MG CAPSULE PO SCH (08:04)
[2020-09-18] MEDS: RisperiDONE 3 MG TABLET PO SCH ×2 (08:04→21:02)
[2020-09-18] MEDS: FOLIC ACID 1 MG TABLET PO SCH ×2 (08:04→17:19)
[2020-09-18] MEDS: GABAPENTIN 100 MG CAPSULE PO SCH ×2 (08:04→17:20)
[2020-09-18] MEDS: OLANZapine 5 MG TABLET PO SCH ×2 (08:04→17:19)
[2020-09-18] MEDS: DIVALPROEX SODIUM 500 MG DR TABLET PO SCH ×2 (08:04→17:19)
[2020-09-18] MEDS: MULTIVITAMINS WITH MINERALS, THERAPEUTIC TABLET PO SCH (08:04)
[2020-09-18] MEDS: HALOPERIDOL 5 MG TABLET PO PRN (09:04)
[2020-09-18] MEDS: LORazepam 2 MG TABLET PO PRN (09:04)
[2020-09-18] MEDS: BACITRACIN 28 GM OINTMENT TP SCH ×2 (11:50→17:20)
[2020-09-18 17:44] VITALS: BP 126/75
[2020-09-19 04:09] VITALS: BP 136/82
[2020-09-19] MEDS: LORazepam 2 MG TABLET PO PRN (04:11)
[2020-09-19] MEDS: FERROUS SULFATE 325 MG EC TABLET PO SCH ×2 (06:34→17:13)
[2020-09-19] MEDS: DIVALPROEX SODIUM 500 MG DR TABLET PO SCH ×2 (08:18→17:13)
[2020-09-19] MEDS: OMEPRAZOLE 20 MG CAPSULE PO SCH (08:18)
[2020-09-19] MEDS: FOLIC ACID 1 MG TABLET PO SCH ×2 (08:18→17:13)
[2020-09-19] MEDS: MULTIVITAMINS WITH MINERALS, THERAPEUTIC TABLET PO SCH (08:18)
[2020-09-19] MEDS: GABAPENTIN 100 MG CAPSULE PO SCH ×2 (08:18→17:13)
[2020-09-19] MEDS: OLANZapine 5 MG TABLET PO SCH ×2 (08:18→17:13)
[2020-09-19] MEDS: RisperiDONE 3 MG TABLET PO SCH ×2 (08:18→21:05)
[2020-09-19] MEDS: BACITRACIN 28 GM OINTMENT TP SCH ×2 (09:02→17:14)
[2020-09-19 09:47] VITALS: BP 91/68
[2020-09-19 11:47] LABS: COVID AG,FIA SOURCE NASOPHARYNGEAL
[2020-09-19 16:08] VITALS: BP 140/90
[2020-09-20] MEDS: FERROUS SULFATE 325 MG EC TABLET PO SCH ×2 (06:35→16:15)
[2020-09-20] MEDS: OLANZapine 5 MG TABLET PO SCH ×2 (08:15→16:15)
[2020-09-20] MEDS: MULTIVITAMINS WITH MINERALS, THERAPEUTIC TABLET PO SCH (08:15)
[2020-09-20] MEDS: RisperiDONE 3 MG TABLET PO SCH ×2 (08:15→20:44)
[2020-09-20] MEDS: DIVALPROEX SODIUM 500 MG DR TABLET PO SCH ×2 (08:15→16:15)
[2020-09-20] MEDS: GABAPENTIN 100 MG CAPSULE PO SCH ×2 (08:15→16:15)
[2020-09-20] MEDS: OMEPRAZOLE 20 MG CAPSULE PO SCH (08:15)
[2020-09-20] MEDS: FOLIC ACID 1 MG TABLET PO SCH ×2 (08:15→16:15)
[2020-09-20] MEDS: BACITRACIN 28 GM OINTMENT TP SCH ×2 (08:15→17:00)
[2020-09-20 13:37] VITALS: BP 113/74
[2020-09-20 16:00] VITALS: BP 100/67
[2020-09-20] MEDS: HALOPERIDOL 5 MG TABLET PO PRN (16:15)
[2020-09-21] MEDS: FERROUS SULFATE 325 MG EC TABLET PO SCH ×2 (06:16→16:28)
[2020-09-21 08:30] VITALS: BP 125/95
[2020-09-21] MEDS: RisperiDONE 3 MG TABLET PO SCH ×2 (10:06→21:15)
[2020-09-21] MEDS: MULTIVITAMINS WITH MINERALS, THERAPEUTIC TABLET PO SCH (10:06)
[2020-09-21] MEDS: OLANZapine 5 MG TABLET PO SCH ×2 (10:06→16:28)
[2020-09-21] MEDS: GABAPENTIN 100 MG CAPSULE PO SCH ×2 (10:06→16:28)
[2020-09-21] MEDS: DIVALPROEX SODIUM 500 MG DR TABLET PO SCH ×2 (10:06→16:28)
[2020-09-21] MEDS: FOLIC ACID 1 MG TABLET PO SCH ×2 (10:06→16:28)
[2020-09-21] MEDS: HALOPERIDOL 5 MG TABLET PO PRN ×2 (10:06→16:28)
[2020-09-21] MEDS: OMEPRAZOLE 20 MG CAPSULE PO SCH (10:07)
[2020-09-21] MEDS: BACITRACIN 28 GM OINTMENT TP SCH ×2 (10:08→17:00)
[2020-09-21 16:01] VITALS: BP 121/82
[2020-09-22 00:05] VITALS: BP 139/78
[2020-09-22] MEDS: FERROUS SULFATE 325 MG EC TABLET PO SCH ×2 (06:54→16:07)
[2020-09-22] MEDS: HALOPERIDOL 5 MG TABLET PO PRN (07:47)
[2020-09-22] MEDS: OLANZapine 5 MG TABLET PO SCH ×2 (08:27→16:07)
[2020-09-22] MEDS: GABAPENTIN 100 MG CAPSULE PO SCH ×2 (08:27→16:07)
[2020-09-22] MEDS: RisperiDONE 3 MG TABLET PO SCH ×2 (08:27→20:06)
[2020-09-22] MEDS: BACITRACIN 28 GM OINTMENT TP SCH ×2 (08:27→17:54)
[2020-09-22] MEDS: FOLIC ACID 1 MG TABLET PO SCH ×2 (08:27→16:07)
[2020-09-22] MEDS: DIVALPROEX SODIUM 500 MG DR TABLET PO SCH ×2 (08:27→16:07)
[2020-09-22] MEDS: MULTIVITAMINS WITH MINERALS, THERAPEUTIC TABLET PO SCH (08:27)
[2020-09-22] MEDS: OMEPRAZOLE 20 MG CAPSULE PO SCH (08:28)
[2020-09-22 10:14] VITALS: BP 141/79
[2020-09-22] MEDS: LORazepam 2 MG TABLET PO PRN (16:07)
[2020-09-22 16:09] VITALS: BP 132/76
[2020-09-23] MEDS: FERROUS SULFATE 325 MG EC TABLET PO SCH ×2 (06:48→16:36)
[2020-09-23] MEDS: HALOPERIDOL 5 MG TABLET PO PRN (07:47)
[2020-09-23] MEDS: MULTIVITAMINS WITH MINERALS, THERAPEUTIC TABLET PO SCH (07:48)
[2020-09-23] MEDS: OMEPRAZOLE 20 MG CAPSULE PO SCH (07:48)
[2020-09-23] MEDS: FOLIC ACID 1 MG TABLET PO SCH ×2 (07:48→16:36)
[2020-09-23] MEDS: GABAPENTIN 100 MG CAPSULE PO SCH ×2 (07:49→16:36)
[2020-09-23] MEDS: RisperiDONE 3 MG TABLET PO SCH ×2 (07:49→20:37)
[2020-09-23] MEDS: BACITRACIN 28 GM OINTMENT TP SCH ×2 (07:49→16:36)
[2020-09-23] MEDS: OLANZapine 5 MG TABLET PO SCH ×2 (07:49→16:36)
[2020-09-23] MEDS: DIVALPROEX SODIUM 500 MG DR TABLET PO SCH ×2 (07:49→16:36)
[2020-09-23 12:13] VITALS: BP 127/64
[2020-09-23 16:21] VITALS: BP 131/76
[2020-09-23] MEDS: ZOLPIDEM TARTRATE 10 MG TABLET PO PRN (20:37)
[2020-09-24] MEDS: FERROUS SULFATE 325 MG EC TABLET PO SCH ×2 (06:37→16:37)
[2020-09-24] MEDS: OMEPRAZOLE 20 MG CAPSULE PO SCH (08:13)
[2020-09-24] MEDS: RisperiDONE 3 MG TABLET PO SCH ×2 (08:13→20:07)
[2020-09-24] MEDS: OLANZapine 5 MG TABLET PO SCH ×2 (08:13→16:37)
[2020-09-24] MEDS: FOLIC ACID 1 MG TABLET PO SCH ×2 (08:13→16:38)
[2020-09-24] MEDS: DIVALPROEX SODIUM 500 MG DR TABLET PO SCH ×2 (08:13→16:37)
[2020-09-24] MEDS: LORazepam 2 MG TABLET PO PRN (08:13)
[2020-09-24] MEDS: GABAPENTIN 100 MG CAPSULE PO SCH ×2 (08:13→16:37)
[2020-09-24] MEDS: MULTIVITAMINS WITH MINERALS, THERAPEUTIC TABLET PO SCH (08:14)
[2020-09-24] MEDS: HALOPERIDOL 5 MG TABLET PO PRN (11:40)
[2020-09-24] MEDS: BACITRACIN 28 GM OINTMENT TP SCH ×2 (11:40→16:38)
[2020-09-24 13:12] VITALS: BP 129/72
[2020-09-24 16:10] VITALS: BP 123/77
[2020-09-25] MEDS: FERROUS SULFATE 325 MG EC TABLET PO SCH ×2 (07:03→16:48)
[2020-09-25] MEDS: OLANZapine 5 MG TABLET PO SCH ×2 (08:35→16:48)
[2020-09-25] MEDS: MULTIVITAMINS WITH MINERALS, THERAPEUTIC TABLET PO SCH (08:35)
[2020-09-25] MEDS: GABAPENTIN 100 MG CAPSULE PO SCH ×2 (08:35→16:48)
[2020-09-25] MEDS: FOLIC ACID 1 MG TABLET PO SCH ×2 (08:35→16:48)
[2020-09-25] MEDS: RisperiDONE 3 MG TABLET PO SCH ×2 (08:35→20:23)
[2020-09-25] MEDS: DIVALPROEX SODIUM 500 MG DR TABLET PO SCH ×2 (08:35→16:48)
[2020-09-25] MEDS: OMEPRAZOLE 20 MG CAPSULE PO SCH (08:35)
[2020-09-25] MEDS: HALOPERIDOL 5 MG TABLET PO PRN (08:35)
[2020-09-25] MEDS: BACITRACIN 28 GM OINTMENT TP SCH ×2 (09:05→16:48)
[2020-09-25 09:51] VITALS: BP 142/65
[2020-09-25 16:04] VITALS: BP 135/92
[2020-09-26] MEDS: FERROUS SULFATE 325 MG EC TABLET PO SCH ×2 (06:34→16:55)
[2020-09-26] MEDS: GABAPENTIN 100 MG CAPSULE PO SCH ×2 (08:08→16:55)
[2020-09-26] MEDS: DIVALPROEX SODIUM 500 MG DR TABLET PO SCH ×2 (08:08→16:55)
[2020-09-26] MEDS: RisperiDONE 3 MG TABLET PO SCH ×2 (08:08→21:20)
[2020-09-26] MEDS: MULTIVITAMINS WITH MINERALS, THERAPEUTIC TABLET PO SCH (08:08)
[2020-09-26] MEDS: FOLIC ACID 1 MG TABLET PO SCH ×2 (08:08→16:55)
[2020-09-26] MEDS: OMEPRAZOLE 20 MG CAPSULE PO SCH (08:08)
[2020-09-26] MEDS: OLANZapine 5 MG TABLET PO SCH ×2 (08:08→16:55)
[2020-09-26] MEDS: BACITRACIN 28 GM OINTMENT TP SCH (09:37)
[2020-09-26 16:07] VITALS: BP 132/81
[2020-09-26] MEDS: HALOPERIDOL 5 MG TABLET PO PRN (16:55)
[2020-09-26 20:52] LABS: COVID AG,FIA SOURCE NASOPHARYNGEAL
[2020-09-27] MEDS: FERROUS SULFATE 325 MG EC TABLET PO SCH ×2 (06:42→16:31)
[2020-09-27 06:57] VITALS: BP 129/78
[2020-09-27] MEDS: OMEPRAZOLE 20 MG CAPSULE PO SCH (08:06)
[2020-09-27] MEDS: OLANZapine 5 MG TABLET PO SCH ×2 (08:06→16:31)
[2020-09-27] MEDS: RisperiDONE 3 MG TABLET PO SCH ×2 (08:06→20:02)
[2020-09-27] MEDS: MULTIVITAMINS WITH MINERALS, THERAPEUTIC TABLET PO SCH (08:06)
[2020-09-27] MEDS: GABAPENTIN 100 MG CAPSULE PO SCH ×2 (08:06→16:31)
[2020-09-27] MEDS: DIVALPROEX SODIUM 500 MG DR TABLET PO SCH ×2 (08:06→16:31)
[2020-09-27] MEDS: FOLIC ACID 1 MG TABLET PO SCH ×2 (08:06→16:31)
[2020-09-27 08:50] VITALS: BP 140/76
[2020-09-27] MEDS: HALOPERIDOL 5 MG TABLET PO PRN (20:13)
[2020-09-28] MEDS: FERROUS SULFATE 325 MG EC TABLET PO SCH ×2 (06:32→16:13)
[2020-09-28] MEDS: FOLIC ACID 1 MG TABLET PO SCH ×2 (08:16→16:13)
[2020-09-28] MEDS: DIVALPROEX SODIUM 500 MG DR TABLET PO SCH ×2 (08:16→16:13)
[2020-09-28] MEDS: MULTIVITAMINS WITH MINERALS, THERAPEUTIC TABLET PO SCH (08:16)
[2020-09-28] MEDS: LORazepam 2 MG TABLET PO PRN (08:16)
[2020-09-28] MEDS: OMEPRAZOLE 20 MG CAPSULE PO SCH (08:16)
[2020-09-28] MEDS: RisperiDONE 3 MG TABLET PO SCH ×2 (08:16→20:02)
[2020-09-28] MEDS: OLANZapine 5 MG TABLET PO SCH ×2 (08:18→16:13)
[2020-09-28] MEDS: GABAPENTIN 100 MG CAPSULE PO SCH ×2 (08:18→16:13)
[2020-09-28] MEDS: HALOPERIDOL 5 MG TABLET PO PRN (12:09)
[2020-09-28 16:00] VITALS: BP 137/57
[2020-09-29] MEDS: FERROUS SULFATE 325 MG EC TABLET PO SCH ×2 (06:35→16:18)
[2020-09-29] MEDS: OLANZapine 5 MG TABLET PO SCH ×2 (08:24→16:18)
[2020-09-29] MEDS: DIVALPROEX SODIUM 500 MG DR TABLET PO SCH ×2 (08:24→16:18)
[2020-09-29] MEDS: GABAPENTIN 100 MG CAPSULE PO SCH ×2 (08:24→16:18)
[2020-09-29] MEDS: FOLIC ACID 1 MG TABLET PO SCH ×2 (08:24→16:18)
[2020-09-29] MEDS: OMEPRAZOLE 20 MG CAPSULE PO SCH (08:24)
[2020-09-29] MEDS: MULTIVITAMINS WITH MINERALS, THERAPEUTIC TABLET PO SCH (08:24)
[2020-09-29] MEDS: RisperiDONE 3 MG TABLET PO SCH ×2 (08:24→20:28)
[2020-09-29 08:30] VITALS: BP 128/77
[2020-09-29 16:00] VITALS: BP_SYST 109; BP_SYST 142; BP_DIAS 72; BP_DIAS 96
[2020-09-30] MEDS: FERROUS SULFATE 325 MG EC TABLET PO SCH ×2 (06:54→16:20)
[2020-09-30] MEDS: LORazepam 2 MG TABLET PO PRN (08:37)
[2020-09-30] MEDS: OMEPRAZOLE 20 MG CAPSULE PO SCH (08:37)
[2020-09-30] MEDS: DIVALPROEX SODIUM 500 MG DR TABLET PO SCH (08:37)
[2020-09-30] MEDS: RisperiDONE 3 MG TABLET PO SCH ×2 (08:37→21:41)
[2020-09-30] MEDS: OLANZapine 5 MG TABLET PO SCH ×2 (08:37→16:20)
[2020-09-30] MEDS: GABAPENTIN 100 MG CAPSULE PO SCH ×2 (08:37→16:20)
[2020-09-30] MEDS: FOLIC ACID 1 MG TABLET PO SCH ×2 (08:38→16:21)
[2020-09-30] MEDS: MULTIVITAMINS WITH MINERALS, THERAPEUTIC TABLET PO SCH (08:38)
[2020-09-30] MEDS: VALPROIC ACID 250 MG/5 ML SOLUTION UDCUP PO SCH ×2 (09:10→16:21)
[2020-09-30 16:00] VITALS: BP 102/61
[2020-09-30] MEDS: HALOPERIDOL 5 MG TABLET PO PRN (16:21)
[2020-10-01] MEDS: FERROUS SULFATE 325 MG EC TABLET PO SCH ×2 (06:50→16:32)
[2020-10-01 08:09] VITALS: BP 149/85
[2020-10-01] MEDS: LORazepam 2 MG TABLET PO PRN (08:27)
[2020-10-01] MEDS: RisperiDONE 3 MG TABLET PO SCH ×2 (08:27→20:04)
[2020-10-01] MEDS: MULTIVITAMINS WITH MINERALS, THERAPEUTIC TABLET PO SCH (08:27)
[2020-10-01] MEDS: VALPROIC ACID 250 MG/5 ML SOLUTION UDCUP PO SCH ×2 (08:27→16:32)
[2020-10-01] MEDS: FOLIC ACID 1 MG TABLET PO SCH ×2 (08:28→16:32)
[2020-10-01] MEDS: OLANZapine 5 MG TABLET PO SCH ×2 (08:28→16:32)
[2020-10-01] MEDS: OMEPRAZOLE 20 MG CAPSULE PO SCH (08:28)
[2020-10-01] MEDS: GABAPENTIN 100 MG CAPSULE PO SCH ×2 (08:28→16:32)
[2020-10-01 16:00] VITALS: BP 127/76
[2020-10-02] MEDS: FERROUS SULFATE 325 MG EC TABLET PO SCH ×2 (06:46→16:45)
[2020-10-02 08:00] VITALS: BP 125/67
[2020-10-02] MEDS: FOLIC ACID 1 MG TABLET PO SCH ×2 (08:45→16:45)
[2020-10-02] MEDS: GABAPENTIN 100 MG CAPSULE PO SCH ×2 (08:45→16:45)
[2020-10-02] MEDS: OLANZapine 5 MG TABLET PO SCH ×2 (08:45→16:45)
[2020-10-02] MEDS: VALPROIC ACID 250 MG/5 ML SOLUTION UDCUP PO SCH ×2 (08:45→16:45)
[2020-10-02] MEDS: MULTIVITAMINS WITH MINERALS, THERAPEUTIC TABLET PO SCH (08:45)
[2020-10-02] MEDS: RisperiDONE 3 MG TABLET PO SCH ×2 (08:45→20:00)
[2020-10-02] MEDS: OMEPRAZOLE 20 MG CAPSULE PO SCH (08:45)
[2020-10-02] MEDS: ACETAMINOPHEN 325 MG TABLET PO PRN (12:04)
[2020-10-02 12:37] VITALS: BP 132/89
[2020-10-02 16:34] VITALS: BP 109/64
[2020-10-02] MEDS: HALOPERIDOL 5 MG TABLET PO PRN (19:27)
[2020-10-03] MEDS: FERROUS SULFATE 325 MG EC TABLET PO SCH ×2 (06:32→16:26)
[2020-10-03 08:03] VITALS: BP 111/69
[2020-10-03] MEDS: HALOPERIDOL 5 MG TABLET PO PRN (09:12)
[2020-10-03] MEDS: RisperiDONE 3 MG TABLET PO SCH ×2 (09:12→20:24)
[2020-10-03] MEDS: GABAPENTIN 100 MG CAPSULE PO SCH ×2 (09:12→16:26)
[2020-10-03] MEDS: OMEPRAZOLE 20 MG CAPSULE PO SCH (09:12)
[2020-10-03] MEDS: OLANZapine 5 MG TABLET PO SCH ×2 (09:12→16:26)
[2020-10-03] MEDS: FOLIC ACID 1 MG TABLET PO SCH ×2 (09:12→16:26)
[2020-10-03] MEDS: MULTIVITAMINS WITH MINERALS, THERAPEUTIC TABLET PO SCH (09:12)
[2020-10-03] MEDS: VALPROIC ACID 250 MG/5 ML SOLUTION UDCUP PO SCH ×2 (09:13→16:26)
[2020-10-03 10:48] LABS: COVID AG,FIA SOURCE NASOPHARYNGEAL
[2020-10-03 16:10] VITALS: BP 129/97
[2020-10-04] MEDS: FERROUS SULFATE 325 MG EC TABLET PO SCH ×2 (06:36→16:52)
[2020-10-04] MEDS: VALPROIC ACID 250 MG/5 ML SOLUTION UDCUP PO SCH ×2 (07:49→16:52)
[2020-10-04] MEDS: FOLIC ACID 1 MG TABLET PO SCH ×2 (07:49→16:52)
[2020-10-04] MEDS: MULTIVITAMINS WITH MINERALS, THERAPEUTIC TABLET PO SCH (07:50)
[2020-10-04] MEDS: RisperiDONE 3 MG TABLET PO SCH ×2 (07:50→20:24)
[2020-10-04] MEDS: OLANZapine 5 MG TABLET PO SCH ×2 (07:50→16:52)
[2020-10-04] MEDS: OMEPRAZOLE 20 MG CAPSULE PO SCH (07:50)
[2020-10-04] MEDS: GABAPENTIN 100 MG CAPSULE PO SCH ×2 (07:50→16:52)
[2020-10-04 08:07] VITALS: BP 152/82
[2020-10-05 04:04] VITALS: BP 136/92
[2020-10-05] MEDS: FERROUS SULFATE 325 MG EC TABLET PO SCH ×2 (07:02→16:23)
[2020-10-05 08:27] VITALS: BP 115/64
[2020-10-05] MEDS: OLANZapine 5 MG TABLET PO SCH ×2 (08:42→20:08)
[2020-10-05] MEDS: OMEPRAZOLE 20 MG CAPSULE PO SCH (08:42)
[2020-10-05] MEDS: FOLIC ACID 1 MG TABLET PO SCH ×2 (08:42→16:23)
[2020-10-05] MEDS: GABAPENTIN 100 MG CAPSULE PO SCH ×2 (08:42→16:23)
[2020-10-05] MEDS: VALPROIC ACID 250 MG/5 ML SOLUTION UDCUP PO SCH ×2 (08:42→16:23)
[2020-10-05] MEDS: LORazepam 2 MG TABLET PO PRN (08:42)
[2020-10-05] MEDS: RisperiDONE 3 MG TABLET PO SCH ×2 (08:42→20:08)
[2020-10-05] MEDS: MULTIVITAMINS WITH MINERALS, THERAPEUTIC TABLET PO SCH (08:42)
[2020-10-05] MEDS: HALOPERIDOL 5 MG TABLET PO PRN (12:40)
[2020-10-05 13:25] LABS: HEMATOCRIT 43.8 % (41-53); MEAN CORPUSCULAR HEMOGLOBIN 35.3 pg (26.0-34.0); MEAN CORPUSCULAR HGB CONC 34.4 G/dL (31.0-37.0); MEAN CORPUSCULAR VOLUME 103 fL (80-100); PLATELET COUNT (AUTO) 285 K/uL (150-450); RED BLOOD CELL COUNT(AUTO) 4.26 MIL/uL (4.50-5.90); RED CELL DISTRIBUTION WIDTH 13.2 % (11.5-14.5)
[2020-10-05 13:46] LABS: BASOPHILS % (AUTO) 0.7 % (0.0-2.0); EOSINOPHILS % (AUTO) 2.6 % (1.0-6.0); LYMPHOCYTES # (AUTO) 2.5 K/uL (1.0-4.8); LYMPHOCYTES % (AUTO) 28.7 % (22.0-44.0)
[2020-10-05 13:49] LABS: BAND NEUTROPHILS % (MANUAL) 3 % (0-5); LYMPHOCYTES % (MANUAL) 35 % (22-44); MONOCYTES % (MANUAL) 3 % (2-9); SEGMENTED NEUTROPHILS % 59 % (40-70)
[2020-10-05] MEDS ORDERED: CloZAPine 25 MG TABLET PO SCH ×2 (14:00→21:00)
[2020-10-05 16:00] VITALS: BP 139/89
[2020-10-06] MEDS: FERROUS SULFATE 325 MG EC TABLET PO SCH ×2 (06:51→16:53)
[2020-10-06] MEDS: OMEPRAZOLE 20 MG CAPSULE PO SCH (07:52)
[2020-10-06] MEDS: MULTIVITAMINS WITH MINERALS, THERAPEUTIC TABLET PO SCH (07:52)
[2020-10-06] MEDS: GABAPENTIN 100 MG CAPSULE PO SCH ×2 (07:52→16:53)
[2020-10-06] MEDS: VALPROIC ACID 250 MG/5 ML SOLUTION UDCUP PO SCH ×2 (07:52→16:52)
[2020-10-06] MEDS: FOLIC ACID 1 MG TABLET PO SCH ×2 (07:53→16:53)
[2020-10-06] MEDS: RisperiDONE 3 MG TABLET PO SCH ×2 (07:53→20:51)
[2020-10-06 08:41] VITALS: BP 151/108
[2020-10-06] MEDS ORDERED: CloZAPine 25 MG TABLET PO SCH ×2 (09:00→21:00)
[2020-10-06 09:25] LABS: BASOPHILS % (AUTO) 0.6 % (0.0-2.0); EOSINOPHILS % (AUTO) 3.8 % (1.0-6.0); HEMATOCRIT 45.8 % (41-53); HEMOGLOBIN 15.4 g/dL (13.5-17.5); LYMPHOCYTES # (AUTO) 1.8 K/uL (1.0-4.8); LYMPHOCYTES % (AUTO) 26.3 % (22.0-44.0); MEAN CORPUSCULAR HEMOGLOBIN 34.7 pg (26.0-34.0); MEAN CORPUSCULAR HGB CONC 33.6 G/dL (31.0-37.0); MEAN CORPUSCULAR VOLUME 103 fL (80-100); MONOCYTES # (AUTO) 0.7 K/uL (0.1-1.0); MONOCYTES % (AUTO) 10.8 % (2.0-9.0); NEUTROPHILS % (AUTO) 58.5 % (40.0-70.0); PLATELET COUNT (AUTO) 321 K/uL (150-450); RED BLOOD CELL COUNT(AUTO) 4.44 MIL/uL (4.50-5.90)
[2020-10-06 16:01] VITALS: BP 132/79
[2020-10-06] MEDS: OLANZapine 5 MG TABLET PO SCH (20:51)
[2020-10-07] MEDS: FERROUS SULFATE 325 MG EC TABLET PO SCH ×2 (06:42→16:13)
[2020-10-07] MEDS: FOLIC ACID 1 MG TABLET PO SCH ×2 (07:51→16:13)
[2020-10-07] MEDS: GABAPENTIN 100 MG CAPSULE PO SCH ×2 (07:51→16:14)
[2020-10-07] MEDS: MULTIVITAMINS WITH MINERALS, THERAPEUTIC TABLET PO SCH (07:51)
[2020-10-07] MEDS: RisperiDONE 3 MG TABLET PO SCH ×2 (07:51→20:12)
[2020-10-07] MEDS: OMEPRAZOLE 20 MG CAPSULE PO SCH (07:51)
[2020-10-07] MEDS: CloZAPine 25 MG TABLET PO SCH ×2 (07:51→20:12)
[2020-10-07] MEDS: VALPROIC ACID 250 MG/5 ML SOLUTION UDCUP PO SCH ×2 (07:51→16:13)
[2020-10-07 16:00] VITALS: BP 130/70
[2020-10-07] MEDS: OLANZapine 5 MG TABLET PO SCH (20:12)
[2020-10-08] MEDS: LORazepam 2 MG TABLET PO PRN ×2 (01:33→09:17)
[2020-10-08] MEDS: FERROUS SULFATE 325 MG EC TABLET PO SCH ×2 (06:57→16:33)
[2020-10-08] MEDS: VALPROIC ACID 250 MG/5 ML SOLUTION UDCUP PO SCH ×2 (09:17→16:33)
[2020-10-08] MEDS: FOLIC ACID 1 MG TABLET PO SCH ×2 (09:17→16:33)
[2020-10-08] MEDS: MULTIVITAMINS WITH MINERALS, THERAPEUTIC TABLET PO SCH (09:17)
[2020-10-08] MEDS: OMEPRAZOLE 20 MG CAPSULE PO SCH (09:17)
[2020-10-08] MEDS: RisperiDONE 3 MG TABLET PO SCH ×2 (09:17→20:10)
[2020-10-08] MEDS: GABAPENTIN 100 MG CAPSULE PO SCH ×2 (09:17→16:33)
[2020-10-08] MEDS: CloZAPine 25 MG TABLET PO SCH ×2 (09:18→20:11)
[2020-10-08 12:15] VITALS: BP 128/69
[2020-10-08 18:01] VITALS: BP 132/75
[2020-10-08] MEDS: OLANZapine 5 MG TABLET PO SCH (20:11)
[2020-10-09] MEDS: GuaiFENesin/D-METHORPHAN [SUGAR-FREE] 200-20MG/10 ML SYRUP UDCUP PO PRN (01:27)
[2020-10-09 02:45] VITALS: BP 128/91
[2020-10-09] MEDS: FERROUS SULFATE 325 MG EC TABLET PO SCH ×2 (06:34→16:19)
[2020-10-09] MEDS ORDERED: CloZAPine 25 MG TABLET PO SCH (09:00)
[2020-10-09 09:12] VITALS: BP 128/69
[2020-10-09] MEDS: OMEPRAZOLE 20 MG CAPSULE PO SCH (09:27)
[2020-10-09] MEDS: GABAPENTIN 100 MG CAPSULE PO SCH ×2 (09:28→16:19)
[2020-10-09] MEDS: MULTIVITAMINS WITH MINERALS, THERAPEUTIC TABLET PO SCH (09:29)
[2020-10-09] MEDS: FOLIC ACID 1 MG TABLET PO SCH ×2 (09:29→16:19)
[2020-10-09] MEDS: RisperiDONE 3 MG TABLET PO SCH ×2 (09:29→20:24)
[2020-10-09] MEDS: VALPROIC ACID 250 MG/5 ML SOLUTION UDCUP PO SCH ×2 (09:32→16:19)
[2020-10-09 16:14] VITALS: BP 119/70
[2020-10-09] MEDS: OLANZapine 5 MG TABLET PO SCH (20:24)
[2020-10-09] MEDS ORDERED: CloZAPine 100 MG TABLET PO SCH (21:00)
[2020-10-10] MEDS: FERROUS SULFATE 325 MG EC TABLET PO SCH ×2 (06:48→17:48)
[2020-10-10] MEDS ORDERED: CloZAPine 25 MG TABLET PO SCH (09:00)
[2020-10-10] MEDS: VALPROIC ACID 250 MG/5 ML SOLUTION UDCUP PO SCH ×2 (09:13→17:49)
[2020-10-10] MEDS: MULTIVITAMINS WITH MINERALS, THERAPEUTIC TABLET PO SCH (09:13)
[2020-10-10] MEDS: GABAPENTIN 100 MG CAPSULE PO SCH ×2 (09:14→17:48)
[2020-10-10] MEDS: RisperiDONE 3 MG TABLET PO SCH ×2 (09:15→21:10)
[2020-10-10] MEDS: FOLIC ACID 1 MG TABLET PO SCH ×2 (09:15→17:48)
[2020-10-10] MEDS: OMEPRAZOLE 20 MG CAPSULE PO SCH (09:15)
[2020-10-10 12:40] VITALS: BP 122/78
[2020-10-10 18:34] LABS: COVID AG,FIA SOURCE NASOPHARYNGEAL
[2020-10-10] MEDS ORDERED: CloZAPine 100 MG TABLET PO SCH (21:00)
[2020-10-10] MEDS: OLANZapine 5 MG TABLET PO SCH (21:10)
[2020-10-11] MEDS: FERROUS SULFATE 325 MG EC TABLET PO SCH ×2 (06:40→16:43)
[2020-10-11 08:00] VITALS: BP 141/95
[2020-10-11] MEDS ORDERED: CloZAPine 25 MG TABLET PO SCH (09:00)
[2020-10-11] MEDS: RisperiDONE 3 MG TABLET PO SCH ×2 (09:37→20:09)
[2020-10-11] MEDS: FOLIC ACID 1 MG TABLET PO SCH ×2 (09:37→16:43)
[2020-10-11] MEDS: GABAPENTIN 100 MG CAPSULE PO SCH ×2 (09:37→16:43)
[2020-10-11] MEDS: OMEPRAZOLE 20 MG CAPSULE PO SCH (09:37)
[2020-10-11] MEDS: MULTIVITAMINS WITH MINERALS, THERAPEUTIC TABLET PO SCH (09:37)
[2020-10-11] MEDS: VALPROIC ACID 250 MG/5 ML SOLUTION UDCUP PO SCH ×2 (09:37→16:43)
[2020-10-11] MEDS: OLANZapine 5 MG TABLET PO SCH (20:09)
[2020-10-11] MEDS ORDERED: CloZAPine 100 MG TABLET PO SCH (21:00)
[2020-10-12] MEDS: FERROUS SULFATE 325 MG EC TABLET PO SCH ×2 (06:46→17:16)
[2020-10-12 08:18] VITALS: BP 108/64
[2020-10-12 08:19] VITALS: BP 108/64
[2020-10-12] MEDS: OMEPRAZOLE 20 MG CAPSULE PO SCH (09:14)
[2020-10-12] MEDS: RisperiDONE 3 MG TABLET PO SCH ×2 (09:14→21:03)
[2020-10-12] MEDS: VALPROIC ACID 250 MG/5 ML SOLUTION UDCUP PO SCH ×2 (09:14→17:15)
[2020-10-12] MEDS: FOLIC ACID 1 MG TABLET PO SCH ×2 (09:15→17:16)
[2020-10-12] MEDS: CloZAPine 100 MG TABLET PO SCH ×2 (09:15→21:03)
[2020-10-12] MEDS: MULTIVITAMINS WITH MINERALS, THERAPEUTIC TABLET PO SCH (09:15)
[2020-10-12] MEDS: GABAPENTIN 100 MG CAPSULE PO SCH ×2 (09:15→17:16)
[2020-10-12] MEDS: OLANZapine 5 MG TABLET PO SCH (21:03)
[2020-10-13 06:42] LABS: BASOPHILS % (AUTO) 1.1 % (0.0-2.0); EOSINOPHILS % (AUTO) 3.9 % (1.0-6.0); HEMATOCRIT 47.7 % (41-53); HEMOGLOBIN 15.9 g/dL (13.5-17.5); LYMPHOCYTES # (AUTO) 2.2 K/uL (1.0-4.8); LYMPHOCYTES % (AUTO) 24.2 % (22.0-44.0); MEAN CORPUSCULAR HEMOGLOBIN 34.4 pg (26.0-34.0); MEAN CORPUSCULAR HGB CONC 33.4 G/dL (31.0-37.0); MEAN CORPUSCULAR VOLUME 103 fL (80-100); MONOCYTES # (AUTO) 1.1 K/uL (0.1-1.0); MONOCYTES % (AUTO) 12.5 % (2.0-9.0); NEUTROPHILS # (AUTO) 5.3 K/uL (1.8-7.7); NEUTROPHILS % (AUTO) 58.3 % (40.0-70.0); PLATELET COUNT (AUTO) 249 K/uL (150-450); RED BLOOD CELL COUNT(AUTO) 4.62 MIL/uL (4.50-5.90); RED CELL DISTRIBUTION WIDTH 13.6 % (11.5-14.5)
[2020-10-13] MEDS: FERROUS SULFATE 325 MG EC TABLET PO SCH ×2 (06:42→17:20)
[2020-10-13] MEDS: FOLIC ACID 1 MG TABLET PO SCH ×2 (08:29→17:20)
[2020-10-13] MEDS: OMEPRAZOLE 20 MG CAPSULE PO SCH (08:29)
[2020-10-13] MEDS: VALPROIC ACID 250 MG/5 ML SOLUTION UDCUP PO SCH ×2 (08:29→17:20)
[2020-10-13] MEDS: MULTIVITAMINS WITH MINERALS, THERAPEUTIC TABLET PO SCH (08:29)
[2020-10-13] MEDS: GABAPENTIN 100 MG CAPSULE PO SCH ×2 (08:29→17:20)
[2020-10-13] MEDS: RisperiDONE 3 MG TABLET PO SCH ×2 (08:29→20:57)
[2020-10-13] MEDS: CloZAPine 100 MG TABLET PO SCH ×2 (08:29→20:57)
[2020-10-13 09:34] VITALS: BP_SYST 18
[2020-10-13 16:31] VITALS: BP 124/81
[2020-10-14] MEDS: GuaiFENesin/D-METHORPHAN [SUGAR-FREE] 200-20MG/10 ML SYRUP UDCUP PO PRN (01:49)
[2020-10-14 03:54] VITALS: BP 120/68
[2020-10-14] MEDS: FERROUS SULFATE 325 MG EC TABLET PO SCH ×2 (06:34→16:51)
[2020-10-14 08:00] VITALS: BP 129/91
[2020-10-14] MEDS ORDERED: CloZAPine 25 MG TABLET PO SCH (09:00)
[2020-10-14] MEDS: VALPROIC ACID 250 MG/5 ML SOLUTION UDCUP PO SCH ×2 (09:18→16:50)
[2020-10-14] MEDS: FOLIC ACID 1 MG TABLET PO SCH ×2 (09:18→16:50)
[2020-10-14] MEDS: MULTIVITAMINS WITH MINERALS, THERAPEUTIC TABLET PO SCH (09:18)
[2020-10-14] MEDS: OMEPRAZOLE 20 MG CAPSULE PO SCH (09:18)
[2020-10-14] MEDS: GABAPENTIN 100 MG CAPSULE PO SCH ×2 (09:18→16:50)
[2020-10-14] MEDS: RisperiDONE 3 MG TABLET PO SCH ×2 (09:18→20:41)
[2020-10-14 16:45] VITALS: BP 123/81
[2020-10-14] MEDS ORDERED: CloZAPine 100 MG TABLET PO SCH (21:00)
[2020-10-15] MEDS: FERROUS SULFATE 325 MG EC TABLET PO SCH ×2 (06:57→16:48)
[2020-10-15] MEDS ORDERED: CloZAPine 25 MG TABLET PO SCH (09:00)
[2020-10-15] MEDS: GABAPENTIN 100 MG CAPSULE PO SCH ×2 (10:38→16:47)
[2020-10-15] MEDS: MULTIVITAMINS WITH MINERALS, THERAPEUTIC TABLET PO SCH (10:38)
[2020-10-15] MEDS: VALPROIC ACID 250 MG/5 ML SOLUTION UDCUP PO SCH ×2 (10:38→16:47)
[2020-10-15] MEDS: OMEPRAZOLE 20 MG CAPSULE PO SCH (10:38)
[2020-10-15] MEDS: FOLIC ACID 1 MG TABLET PO SCH ×2 (10:39→16:47)
[2020-10-15] MEDS: RisperiDONE 3 MG TABLET PO SCH ×2 (13:33→20:12)
[2020-10-15 16:00] VITALS: BP 117/79
[2020-10-15] MEDS ORDERED: CloZAPine 100 MG TABLET PO SCH (21:00)
[2020-10-16] MEDS: GuaiFENesin/D-METHORPHAN [SUGAR-FREE] 200-20MG/10 ML SYRUP UDCUP PO PRN (06:17)
[2020-10-16] MEDS: FERROUS SULFATE 325 MG EC TABLET PO SCH ×2 (06:45→16:54)
[2020-10-16] MEDS: FOLIC ACID 1 MG TABLET PO SCH ×2 (09:41→16:54)
[2020-10-16] MEDS: VALPROIC ACID 250 MG/5 ML SOLUTION UDCUP PO SCH ×2 (09:41→16:54)
[2020-10-16] MEDS: GABAPENTIN 100 MG CAPSULE PO SCH ×2 (09:41→16:54)
[2020-10-16] MEDS: CloZAPine 100 MG TABLET PO SCH (09:42)
[2020-10-16] MEDS: MULTIVITAMINS WITH MINERALS, THERAPEUTIC TABLET PO SCH (09:42)
[2020-10-16] MEDS: RisperiDONE 3 MG TABLET PO SCH ×2 (09:42→20:12)
[2020-10-16] MEDS: OMEPRAZOLE 20 MG CAPSULE PO SCH (09:42)
[2020-10-16 11:03] VITALS: BP 128/75
[2020-10-16] MEDS: LEVOFLOXACIN 750 MG TABLET PO SCH (12:45)
[2020-10-16 16:06] VITALS: BP 123/78
[2020-10-16] MEDS ORDERED: CloZAPine 100 MG TABLET PO SCH (21:00)
[2020-10-17] MEDS: GuaiFENesin/D-METHORPHAN [SUGAR-FREE] 200-20MG/10 ML SYRUP UDCUP PO PRN ×2 (01:52→09:57)
[2020-10-17 03:18] VITALS: BP 125/76
[2020-10-17] MEDS: ALBUTEROL SULFATE HFA 90 MCG/PUFF 8 GM INHALER IH PRN (03:34)
[2020-10-17] MEDS: ACETAMINOPHEN 325 MG TABLET PO PRN (06:44)
[2020-10-17] MEDS: FERROUS SULFATE 325 MG EC TABLET PO SCH ×2 (06:44→16:51)
[2020-10-17 08:00] VITALS: BP 130/66
[2020-10-17] MEDS: FOLIC ACID 1 MG TABLET PO SCH ×2 (09:56→16:51)
[2020-10-17] MEDS: LEVOFLOXACIN 750 MG TABLET PO SCH (09:56)
[2020-10-17] MEDS: RisperiDONE 3 MG TABLET PO SCH ×2 (09:56→20:17)
[2020-10-17] MEDS: MULTIVITAMINS WITH MINERALS, THERAPEUTIC TABLET PO SCH (09:56)
[2020-10-17] MEDS: OMEPRAZOLE 20 MG CAPSULE PO SCH (09:56)
[2020-10-17] MEDS: CloZAPine 100 MG TABLET PO SCH ×2 (09:56→20:17)
[2020-10-17] MEDS: GABAPENTIN 100 MG CAPSULE PO SCH ×2 (09:57→16:51)
[2020-10-17] MEDS: VALPROIC ACID 250 MG/5 ML SOLUTION UDCUP PO SCH ×2 (09:57→16:51)
[2020-10-17 13:13] VITALS: BP 153/78
[2020-10-17 14:37] LABS: COVID AG,FIA SOURCE NASOPHARYNGEAL
[2020-10-17 16:35] VITALS: BP 123/76
[2020-10-18 03:01] VITALS: BP 120/76
[2020-10-18] MEDS: FERROUS SULFATE 325 MG EC TABLET PO SCH ×2 (06:51→17:18)
[2020-10-18 08:30] VITALS: BP 106/55
[2020-10-18] MEDS: FOLIC ACID 1 MG TABLET PO SCH ×2 (08:37→17:18)
[2020-10-18] MEDS: CloZAPine 25 MG TABLET PO SCH (08:37)
[2020-10-18] MEDS: GABAPENTIN 100 MG CAPSULE PO SCH ×2 (08:37→17:18)
[2020-10-18] MEDS: MULTIVITAMINS WITH MINERALS, THERAPEUTIC TABLET PO SCH (08:37)
[2020-10-18] MEDS: OMEPRAZOLE 20 MG CAPSULE PO SCH (08:37)
[2020-10-18] MEDS: HALOPERIDOL 5 MG TABLET PO PRN (08:37)
[2020-10-18] MEDS: LEVOFLOXACIN 750 MG TABLET PO SCH (08:37)
[2020-10-18] MEDS: VALPROIC ACID 250 MG/5 ML SOLUTION UDCUP PO SCH ×2 (08:38→17:18)
[2020-10-18] MEDS: RisperiDONE 3 MG TABLET PO SCH ×2 (08:38→20:30)
[2020-10-18 16:13] VITALS: BP 130/79
[2020-10-18] MEDS: CloZAPine 100 MG TABLET PO SCH (20:30)
[2020-10-18] MEDS: MAGNESIUM HYDROXIDE SUSPENSION 30 ML UDCUP PO PRN (22:05)
[2020-10-19] MEDS: FERROUS SULFATE 325 MG EC TABLET PO SCH ×2 (06:47→17:45)
[2020-10-19] MEDS: VALPROIC ACID 250 MG/5 ML SOLUTION UDCUP PO SCH ×2 (08:53→17:44)
[2020-10-19] MEDS: LEVOFLOXACIN 750 MG TABLET PO SCH (08:53)
[2020-10-19] MEDS: OMEPRAZOLE 20 MG CAPSULE PO SCH (08:53)
[2020-10-19] MEDS: RisperiDONE 3 MG TABLET PO SCH ×2 (08:53→20:45)
[2020-10-19] MEDS: MULTIVITAMINS WITH MINERALS, THERAPEUTIC TABLET PO SCH (08:53)
[2020-10-19] MEDS: CloZAPine 25 MG TABLET PO SCH (08:53)
[2020-10-19] MEDS: GABAPENTIN 100 MG CAPSULE PO SCH ×2 (08:53→17:45)
[2020-10-19] MEDS: FOLIC ACID 1 MG TABLET PO SCH ×2 (08:53→17:45)
[2020-10-19] MEDS: HALOPERIDOL 5 MG TABLET PO PRN (08:54)
[2020-10-19] MEDS: LORazepam 2 MG TABLET PO PRN (08:54)
[2020-10-19 16:25] VITALS: BP 127/78
[2020-10-19] MEDS: CloZAPine 100 MG TABLET PO SCH (20:45)
[2020-10-20 03:21] VITALS: BP 116/70
[2020-10-20] MEDS: GuaiFENesin/D-METHORPHAN [SUGAR-FREE] 200-20MG/10 ML SYRUP UDCUP PO PRN (06:03)
[2020-10-20] MEDS: FERROUS SULFATE 325 MG EC TABLET PO SCH ×2 (06:53→16:51)
[2020-10-20] MEDS: CloZAPine 25 MG TABLET PO SCH (07:58)
[2020-10-20] MEDS: LEVOFLOXACIN 750 MG TABLET PO SCH (07:58)
[2020-10-20] MEDS: OMEPRAZOLE 20 MG CAPSULE PO SCH (07:58)
[2020-10-20] MEDS: MULTIVITAMINS WITH MINERALS, THERAPEUTIC TABLET PO SCH (07:58)
[2020-10-20] MEDS: VALPROIC ACID 250 MG/5 ML SOLUTION UDCUP PO SCH ×2 (07:58→16:51)
[2020-10-20] MEDS: RisperiDONE 3 MG TABLET PO SCH ×2 (07:58→21:02)
[2020-10-20] MEDS: GABAPENTIN 100 MG CAPSULE PO SCH ×2 (07:59→16:51)
[2020-10-20] MEDS: FOLIC ACID 1 MG TABLET PO SCH ×2 (07:59→16:51)
[2020-10-20 08:05] VITALS: BP 115/81
[2020-10-20 08:06] VITALS: BP 113/81
[2020-10-20 16:22] VITALS: BP 123/79
[2020-10-20] MEDS: CloZAPine 100 MG TABLET PO SCH (21:02)
[2020-10-20] MEDS: ZOLPIDEM TARTRATE 10 MG TABLET PO PRN (22:17)
[2020-10-21] MEDS: FERROUS SULFATE 325 MG EC TABLET PO SCH ×2 (06:50→17:40)
[2020-10-21 07:22] LABS: BASOPHILS % (AUTO) 0.8 % (0.0-2.0); EOSINOPHILS % (AUTO) 1.4 % (1.0-6.0); HEMATOCRIT 38.1 % (41-53); HEMOGLOBIN 12.7 g/dL (13.5-17.5); LYMPHOCYTES # (AUTO) 1.7 K/uL (1.0-4.8); LYMPHOCYTES % (AUTO) 12.7 % (22.0-44.0); MEAN CORPUSCULAR HEMOGLOBIN 34.2 pg (26.0-34.0); MEAN CORPUSCULAR HGB CONC 33.2 G/dL (31.0-37.0); MEAN CORPUSCULAR VOLUME 103 fL (80-100); MONOCYTES # (AUTO) 1.8 K/uL (0.1-1.0); MONOCYTES % (AUTO) 13.5 % (2.0-9.0); NEUTROPHILS # (AUTO) 9.5 K/uL (1.8-7.7); NEUTROPHILS % (AUTO) 71.6 % (40.0-70.0); PLATELET COUNT (AUTO) 293 K/uL (150-450); RED BLOOD CELL COUNT(AUTO) 3.71 MIL/uL (4.50-5.90); RED CELL DISTRIBUTION WIDTH 13.3 % (11.5-14.5)
[2020-10-21] MEDS: MULTIVITAMINS WITH MINERALS, THERAPEUTIC TABLET PO SCH (09:06)
[2020-10-21] MEDS: CloZAPine 25 MG TABLET PO SCH (09:06)
[2020-10-21] MEDS: GABAPENTIN 100 MG CAPSULE PO SCH ×2 (09:07→17:40)
[2020-10-21] MEDS: LEVOFLOXACIN 750 MG TABLET PO SCH (09:07)
[2020-10-21] MEDS: RisperiDONE 3 MG TABLET PO SCH ×2 (09:07→20:10)
[2020-10-21] MEDS: FOLIC ACID 1 MG TABLET PO SCH ×2 (09:07→17:40)
[2020-10-21] MEDS: OMEPRAZOLE 20 MG CAPSULE PO SCH (09:07)
[2020-10-21] MEDS: VALPROIC ACID 250 MG/5 ML SOLUTION UDCUP PO SCH ×2 (09:09→17:40)
[2020-10-21 09:53] VITALS: BP 117/75
[2020-10-21 18:46] VITALS: BP 79/94
[2020-10-21] MEDS: CloZAPine 100 MG TABLET PO SCH (20:10)
[2020-10-22 05:57] LABS: BASOPHILS % (AUTO) 0.9 % (0.0-2.0); EOSINOPHILS % (AUTO) 0.7 % (1.0-6.0); HEMATOCRIT 37.9 % (41-53); HEMOGLOBIN 12.6 g/dL (13.5-17.5); LYMPHOCYTES # (AUTO) 1.5 K/uL (1.0-4.8); LYMPHOCYTES % (AUTO) 10.4 % (22.0-44.0); MEAN CORPUSCULAR HEMOGLOBIN 34.5 pg (26.0-34.0); MEAN CORPUSCULAR HGB CONC 33.2 G/dL (31.0-37.0); MEAN CORPUSCULAR VOLUME 104 fL (80-100); MONOCYTES # (AUTO) 1.8 K/uL (0.1-1.0); MONOCYTES % (AUTO) 12.6 % (2.0-9.0); NEUTROPHILS # (AUTO) 10.8 K/uL (1.8-7.7); NEUTROPHILS % (AUTO) 75.4 % (40.0-70.0); PLATELET COUNT (AUTO) 317 K/uL (150-450); RED BLOOD CELL COUNT(AUTO) 3.65 MIL/uL (4.50-5.90); RED CELL DISTRIBUTION WIDTH 13.6 % (11.5-14.5)
[2020-10-22] MEDS: FERROUS SULFATE 325 MG EC TABLET PO SCH ×2 (06:55→16:58)
[2020-10-22] MEDS: RisperiDONE 3 MG TABLET PO SCH ×2 (09:02→20:10)
[2020-10-22] MEDS: FOLIC ACID 1 MG TABLET PO SCH ×2 (09:02→16:58)
[2020-10-22] MEDS: MULTIVITAMINS WITH MINERALS, THERAPEUTIC TABLET PO SCH (09:02)
[2020-10-22] MEDS: LEVOFLOXACIN 750 MG TABLET PO SCH (09:02)
[2020-10-22] MEDS: VALPROIC ACID 250 MG/5 ML SOLUTION UDCUP PO SCH ×2 (09:03→16:58)
[2020-10-22] MEDS: GABAPENTIN 100 MG CAPSULE PO SCH ×2 (09:03→16:58)
[2020-10-22] MEDS: CloZAPine 25 MG TABLET PO SCH (09:03)
[2020-10-22] MEDS: OMEPRAZOLE 20 MG CAPSULE PO SCH (09:03)
[2020-10-22 16:40] VITALS: BP 139/95
[2020-10-22] MEDS: CloZAPine 100 MG TABLET PO SCH (20:10)
[2020-10-23 01:10] VITALS: BP 121/79
[2020-10-23] MEDS: GuaiFENesin/D-METHORPHAN [SUGAR-FREE] 200-20MG/10 ML SYRUP UDCUP PO PRN (01:11)
[2020-10-23] MEDS: ACETAMINOPHEN 325 MG TABLET PO PRN (01:11)
[2020-10-23] MEDS: ALBUTEROL SULFATE HFA 90 MCG/PUFF 8 GM INHALER IH PRN (01:19)
[2020-10-23 02:11] VITALS: BP 128/75
[2020-10-23 05:27] VITALS: BP 122/72
[2020-10-23] MEDS: FERROUS SULFATE 325 MG EC TABLET PO SCH ×2 (06:49→16:41)
[2020-10-23 08:30] VITALS: BP 149/71
[2020-10-23] MEDS: VALPROIC ACID 250 MG/5 ML SOLUTION UDCUP PO SCH ×2 (08:58→16:41)
[2020-10-23] MEDS: GABAPENTIN 100 MG CAPSULE PO SCH ×2 (08:58→16:40)
[2020-10-23] MEDS: MULTIVITAMINS WITH MINERALS, THERAPEUTIC TABLET PO SCH (08:58)
[2020-10-23] MEDS: LEVOFLOXACIN 750 MG TABLET PO SCH (08:59)
[2020-10-23] MEDS: CloZAPine 25 MG TABLET PO SCH (08:59)
[2020-10-23] MEDS: CLINDAMYCIN HCL 300 MG CAPSULE PO SCH ×3 (08:59→16:41)
[2020-10-23] MEDS: FOLIC ACID 1 MG TABLET PO SCH ×2 (08:59→16:41)
[2020-10-23] MEDS: RisperiDONE 3 MG TABLET PO SCH ×2 (08:59→20:18)
[2020-10-23] MEDS: OMEPRAZOLE 20 MG CAPSULE PO SCH (08:59)
[2020-10-23 16:00] VITALS: BP 103/57
[2020-10-23 20:00] VITALS: BP 105/59
[2020-10-23] MEDS: CloZAPine 100 MG TABLET PO SCH (20:18)
[2020-10-24 00:28] LABS: APPEARANCE,URINE CLEAR (CLEAR); BILIRUBIN,URINE NEGATIVE (NEGATIVE); GLUCOSE, URINE (UA) NEGATIVE (NEGATIVE); KETONES,URINE NEGATIVE (NEGATIVE); LEUKOCYTE ESTERASE ,URINE NEGATIVE (NEGATIVE); NITRATE,URINE NEGATIVE (NEGATIVE); OCCULT BLOOD,URINE NEGATIVE (NEGATIVE); PH,URINE 5.5 (5.0-8.0); PROTEIN,URINE NEGATIVE (NEGATIVE)
[2020-10-24 03:12] VITALS: BP 106/60
[2020-10-24] MEDS: ACETAMINOPHEN 325 MG TABLET PO PRN ×2 (03:18→12:53)
[2020-10-24] MEDS: FERROUS SULFATE 325 MG EC TABLET PO SCH ×2 (06:38→17:40)
[2020-10-24 08:51] VITALS: BP 118/67
[2020-10-24] MEDS: OMEPRAZOLE 20 MG CAPSULE PO SCH (10:02)
[2020-10-24] MEDS: VALPROIC ACID 250 MG/5 ML SOLUTION UDCUP PO SCH ×2 (10:02→17:40)
[2020-10-24] MEDS: FOLIC ACID 1 MG TABLET PO SCH ×2 (10:02→17:40)
[2020-10-24] MEDS: RisperiDONE 3 MG TABLET PO SCH (10:02)
[2020-10-24] MEDS: CLINDAMYCIN HCL 300 MG CAPSULE PO SCH ×3 (10:02→17:40)
[2020-10-24] MEDS: MULTIVITAMINS WITH MINERALS, THERAPEUTIC TABLET PO SCH (10:02)
[2020-10-24] MEDS: CloZAPine 25 MG TABLET PO SCH (10:02)
[2020-10-24] MEDS: GABAPENTIN 100 MG CAPSULE PO SCH ×2 (10:02→17:40)
[2020-10-24 15:23] LABS: COVID AG,FIA SOURCE NASOPHARYNGEAL
[2020-10-24 16:10] VITALS: BP 110/63
[2020-10-24] MEDS ORDERED: DOXYCYCLINE HYCLATE 100 MG TABLET PO SCH (17:00)
== END 2020-10-24 18:15 | disposition short-term general hospital (02) | DRG 750 ==
LOC: EDBD 16:00 → 3EC 16:00 → 3EI 08-13 18:45
PROVIDERS: ADMIT Psychiatry & Neurology Child & Adolescent Psychiatry; ATTEND Psychiatry & Neurology Child & Adolescent Psychiatry
DX: F20.0 Paranoid schizophrenia (principal); G93.41 Metabolic encephalopathy; E44.0 Moderate protein-calorie malnutrition; F31.9 Bipolar disorder, unspecified; F41.9 Anxiety disorder, unspecified; Z59.0 Homelessness; E87.1 Hypo-osmolality and hyponatremia; Z68.23 Body mass index [BMI] 23.0-23.9, adult; Z20.822 Contact with and (suspected) exposure to COVID-19
CPT/HCPCS: 71045; 80048; 80053; 80164; 81001; 81003; 85007; 85025; 85027; 87040; 87081; A9575; J3535; 36415-L1; 36415-TC